=== PATIENT | female | born 1935 | race Caucasian/White ===

== ENCOUNTER 2016-10-17 14:55 | Observation (INO) ==
--- NOTE | 2016-10-17 15:41 | Emergency Department Note ---
Disposition Clinical Impression: Kidney stones Disposition: Admitted As Inpatient Condition: Good Referrals: Theodore,Tammy Dockery [employer] [Advanced Practice Nurse] - Time of Disposition: 17:50 Abdominal Pain HPI - General Chief Complaint: ED Abdominal Pain Stated Complaint: ABD pain Time Seen by Provider: 10/17/16 15:40 Source: patient, family - History of Present Illness HPI Narrative: 81-year-old female presents complaining of right lower quadrant abdominal pain began roughly at 10 AM today. She states she has not been feeling well the last 2 days, noting that her pants have become tighter and she has gone through stages where she becomes more sweaty & feverish, then chills. Her last BM was 2 days ago and was smaller than normal. She has been belching & gassy. She states that pain is a "hard pain" that is constant, right lower quadrant of the abdomen and wraps around to her back. It is associated with sweating, vomiting , dizziness. She states that the pain is worse with walking, sitting, laying on the right side. At 10 AM, when the pain began she took 2 laxatives, but has not had a bowel movement yet. She denies chest pain, shortness of breath, dysuria, hematemesis. She does state that she has a history of kidney stones and that this "feels worse." She also has a history of an open appendectomy in the 80s. Pain Scale: 9 - Related Data Home Medications Medication Instructions Recorded Confirmed No Known Home Drugs 10/17/16 10/17/16 Allergies Allergy/AdvReac Type Severity Reaction Status Date / Time No Known Allergies Allergy Verified 10/17/16 15:00 All systems ED: reviewed and negative except as stated. Abdominal Pain PMH - Past Medical History Medical history: Reports: glaucoma, kidney stones, other (basal cell carcinoma) Female Surgical History: Reports: appendectomy Psychiatric history: Reports: no psych history - Social History Smoking status: Never smoker Alcohol use: Reports: none Drug use: Reports: none Physical Exam - General Limitations: no limitations General appearance: alert, in distress - Head Head exam: atraumatic, normocephalic, normal inspection - Eye Eye exam: Present: normal appearance, PERRL, EOMI - ENT ENT exam: normal oropharynx, mucous membranes moist - Neck Neck exam: Present: normal inspection, full ROM, trachea midline. Absent: tenderness, lymphadenopathy, thyromegaly - Chest Chest inspection: Present: normal inspection, symmetric chest wall rise. Absent : tenderness - Respiratory Respiratory exam: Present: normal lung sounds bilaterally - Cardiovascular Cardiovascular exam: Present: regular rate, normal rhythm, normal heart sounds - Abdominal Exam Abdominal exam: Present: tenderness, distention, guarding, hyperactive bowel sounds, scar. Absent: rigidity, ascites, bruit, pulsatile mass Abdominal tenderness: Present: RLQ, suprapubic, diffuse - Extremities Exam Extremities exam: Present: normal inspection, full ROM, normal capillary refill. Absent: tenderness, pedal edema, calf tenderness - Neurological Exam Neurological exam: Present: alert, oriented X3. Absent: motor sensory deficit - Psychiatric Psychiatric exam: Present: normal affect, normal mood - Skin Skin exam: Present: warm, dry, intact, normal color. Absent: diaphoresis Course Course Narrative: 81-year-old female presents complaining of right lower quadrant abdominal pain began roughly at 10 AM today. She states she has not been feeling well the last 2 days, noting that her pants have become tighter and she has gone through stages where she becomes more sweaty & feverish, then chills. Her last BM was 2 days ago and was smaller than normal. She has been belching & gassy. She states that pain is a "hard pain" that is constant, right lower quadrant of the abdomen and wraps around to her back. It is associated with sweating, vomiting , dizziness. She states that the pain is worse with walking, sitting, laying on the right side. At 10 AM, when the pain began she took 2 laxatives, but has not had a bowel movement yet. She denies chest pain, shortness of breath, dysuria, hematemesis. She does state that she has a history of kidney stones and that this "feels worse." She also has a history of an open appendectomy in the 80s. On exam the patient appears in distress, holding her right lower quadrant of her abdomen. She is diffusely tender to palpation. Her abdomen is distended, but is not tympanic. She does have bowel sounds present in all 4 quadrants. Patient is not diaphoretic. Given her age, abdominal surgical history there is concern for possible AAA, SBO, ischemic bowel. We will obtain routine labs and a CAT scan of the abdomen\\pelvis. Patient will be given morphine for pain control and Zofran for nausea. CT reveals multiple kidney stones right kidney. The largest measures [address] Bosch will accept patient for admission. Patient still in pain and states that with her last kidney stone she tolerated Dilaudid. We will give her 1 mg and admit her to Dr. Bosch. - Reevaluation(s) Reevaluation #1: Patient has returned from CT. Patient continues to complain of pain after 2 mg of morphine. We will give second dose of 2 mg of morphine. Awaiting CT results. Time: 16:54 Reevaluation #2: CT results showed multiple stones in the right kidney. Dr. Bosch reviewed the CT and will see the patient as an inpatient. We have discussed this with the patient and her family who were agreeable to admission at this time. Patient is still experiencing pain and states that in the past she has tolerated dilaudid when she had kidney stones. 1 mg Dilaudid andphenergan ordered for sx control. Time: 17:30 - Consultations Consultation #1: Dr. Bosch has reviewed the CT results and will admit the patient. Time: 17:15 Vital Signs Temperature 97.3 F L 10/17/16 14:57 Pulse Rate 64 10/17/16 14:57 Respiratory Rate 18 10/17/16 14:57 Blood Pressure 183/75 10/17/16 14:57 O2 Sat by Pulse Oximetry 100 10/17/16 14:57 Temperature 95.9 F L 10/17/16 18:58 Pulse Rate 87 10/17/16 18:58 Respiratory Rate 14 10/17/16 18:58 Blood Pressure 173/103 10/17/16 18:58 O2 Sat by Pulse Oximetry 99 10/17/16 18:58 Oxygen Delivery Oxygen Delivery Nasal Cannula Abdominal Pain - Lab Data Lab results reviewed: Yes I reviewed the patient's lab results. Result diagrams: 10/17/16 16:10 10/17/16 16:10 Lab Results 10/17/16 10/17/16 10/17/16 Range/Units 15:50 16:10 16:10 WBC 12.8 H (4.3-11.1) K/mcL RBC 5.60 H (3.82-4.97) M/mcL Hgb 15.2 (11.5-15.4) g/dL Hct 45.4 H (35.3-44.9) % MCV 81.1 L (83.0-100.0) fL MCH 27.1 L (28.0-33.3) pg MCHC 33.5 (31.6-35.5) g/dL RDW 12.7 (11.5-14.5) % Plt Count 150 (140-400) K/mcL MPV 11.0 (9.4-12.4) fL Immature Gran % 0.9 (0-4) % Seg Neutrophils % 90.8 % Lymphocytes % 3.3 % Monocytes % 4.6 % Eosinophils % 0.1 % Basophils % 0.3 % Neutrophils # 11.6 H (1.6-8.9) K/mcL Lymphocytes # 0.4 L (0.6-4.6) K/mcL Monocytes # 0.6 (0.0-1.3) K/mcL Eosinophils # 0.0 (0.0-0.6) K/mcL Basophils # 0.0 (0.0-0.2) K/mcL PT 11.4 (9.4-12.1) Seconds INR 1.1 APTT 27.5 (26.0-36.0) Seconds Sodium (136-145) mEq/L Potassium (3.5-4.5) mEq/L Chloride (98-109) mEq/L Carbon Dioxide (19-29) mEq/L BUN (7-20) mg/dL Creatinine (0.57-1.11) mg/dL Est GFR ( Amer) (> 60) Est GFR (Non-Af Amer) (> 60) BUN/Creatinine Ratio (6-26) Glucose (70-99) mg/dL Calculated Osmolality (280-300) Lactic Acid (0.5-2.2) mmol/L Calcium (8.6-10.8) mg/dL Total Bilirubin (0.2-1.2) mg/dL AST (5-34) Units/L ALT (0-55) Units/L Alkaline Phosphatase (38-126) Units/L Serum Total Protein (6.0-8.3) g/dL Albumin (3.5-5.0) g/dL Globulin (2.4-3.5) g/dL Albumin/Globulin Ratio (1.1-2.2) Amylase (25-125) Units/L Lipase (8-78) Units/L Urine Color Yellow (Yellow) Urine Clarity Cloudy A (Clear) Urine pH 6.5 (5.0-8.0) pH Units Ur Specific [place] 1.021 (1.010-1.025) Urine Protein 30 H (Neg-Trace) mg/dL Urine Glucose (UA) Normal (Normal) mg/dL Urine Ketones 15 H (Negative) mg/dL Urine Blood Negative (Negative) Urine Nitrite Negative (Negative) Urine Bilirubin Negative (Negative) Urine Urobilinogen Normal (Normal) mg/dL Ur Leukocyte Esterase Moderate H (Negative) Urine Microscopic RBC 5-15 H (0-3) per hpf Urine Microscopic WBC 50-100 H (0-3) per hpf Ur Squamous Epith Cells Many H (None-Few) per lpf Urine Bacteria None Seen (None-Few) per hpf Hyaline Casts None Seen (None-Few) per lpf Ur Culture Indicated? YES A (NO) 10/17/16 10/17/16 Range/Units 16:10 16:10 WBC (4.3-11.1) K/mcL RBC (3.82-4.97) M/mcL Hgb (11.5-15.4) g/dL Hct (35.3-44.9) % MCV (83.0-100.0) fL MCH (28.0-33.3) pg MCHC (31.6-35.5) g/dL RDW (11.5-14.5) % Plt Count (140-400) K/mcL MPV (9.4-12.4) fL Immature Gran % (0-4) % Seg Neutrophils % % Lymphocytes % % Monocytes % % Eosinophils % % Basophils % % Neutrophils # (1.6-8.9) K/mcL Lymphocytes # (0.6-4.6) K/mcL Monocytes # (0.0-1.3) K/mcL Eosinophils # (0.0-0.6) K/mcL Basophils # (0.0-0.2) K/mcL PT (9.4-12.1) Seconds INR APTT (26.0-36.0) Seconds Sodium 139 (136-145) mEq/L Potassium 4.4 (3.5-4.5) mEq/L Chloride 103 (98-109) mEq/L Carbon Dioxide 22 (19-29) mEq/L BUN 19 (7-20) mg/dL Creatinine 0.77 (0.57-1.11) mg/dL Est GFR ( Amer) > 60 (> 60) Est GFR (Non-Af Amer) > 60 (> 60) BUN/Creatinine Ratio 25 (6-26) Glucose 147 H (70-99) mg/dL Calculated Osmolality 293 (280-300) Lactic Acid 2.0 (0.5-2.2) mmol/L Calcium 9.5 (8.6-10.8) mg/dL Total Bilirubin 0.5 (0.2-1.2) mg/dL AST 24 (5-34) Units/L ALT 13 (0-55) Units/L Alkaline Phosphatase 78 (38-126) Units/L Serum Total Protein 7.2 (6.0-8.3) g/dL Albumin 3.8 (3.5-5.0) g/dL Globulin 3.4 (2.4-3.5) g/dL Albumin/Globulin Ratio 1.1 (1.1-2.2) Amylase 48 (25-125) Units/L Lipase 47 (8-78) Units/L Urine Color (Yellow) Urine Clarity (Clear) Urine pH (5.0-8.0) pH Units Ur Specific [place] (1.010-1.025) Urine Protein (Neg-Trace) mg/dL Urine Glucose (UA) (Normal) mg/dL Urine Ketones (Negative) mg/dL Urine Blood (Negative) Urine Nitrite (Negative) Urine Bilirubin (Negative) Urine Urobilinogen (Normal) mg/dL Ur Leukocyte Esterase (Negative) Urine Microscopic RBC (0-3) per hpf Urine Microscopic WBC (0-3) per hpf Ur Squamous Epith Cells (None-Few) per lpf Urine Bacteria (None-Few) per hpf Hyaline Casts (None-Few) per lpf Ur Culture Indicated? (NO) - Radiology Data Radiology results reviewed: Yes I reviewed the patient's radiology results. Abdomen/Pelvis CT 10/17/16 16:01 IMPRESSION: 1. CT evidence of right obstructive uropathy. There are a few right distal ureteral calculi resulting in moderate right hydroureteronephrosis and severe right perinephric stranding. The largest calculus measures 7 x 7 mm. 2. Additional bilateral renal calculi. 3. Moderate size hiatal hernia. 4. Diverticulosis. 5. Moderate atherosclerosis. 6. Grade 1 anterolisthesis of L3 and L4, L4-5 and L5-S1. Moderate levoscoliosis and advanced multilevel degenerative disc disease. 7. Additional stable incidental findings in the chest and abdomen as detailed. D/ / Gayle Lui MD / Gayle Lui MD Interpreting Provider: Gayle Lui MD - EKG Data EKG attestation: Yes I reviewed and interpreted this EKG. EKG shows normal: sinus rhythm Rate: normal Rhythm: NSR [place]/QRS: normal When compared to previous EKG there are: previous EKG unavailable Interpretation: normal EKG
[2016-10-17] MEDS ORDERED: Ondansetron 4 MG/2 ML VIAL IVP ONE (16:00)
[2016-10-17] MEDS ORDERED: *HR* Morphine 2 MG/ML SYRINGE IVP ONE ×2 (16:00→17:00)
[2016-10-17 16:04] LABS: Bilirubin,Urine Negative (Negative); Blood,Urine Negative (Negative); Clarity,Urine Cloudy (Clear); Color,Urine Yellow (Yellow); Glucose,Urine (UA) Normal (Normal); Ketones,Urine 15 mg/dL (Negative); Leukocyte Esterase,Urine Moderate (Negative); Nitrite,Urine Negative (Negative); PH,Urine 6.5 pH Units (5.0-8.0); Protein,Urine 30 mg/dL (Neg-Trace); Specific Gravity,Urine 1.021 (1.010-1.025); Urobilinogen,Urine Normal (Normal)
[2016-10-17 16:11] LABS: Bacteria,Urine None Seen per hpf (None-Few); Hyaline Casts,Urine None Seen per lpf (None-Few); Squamous Epithelial Cell,Urine Many per lpf (None-Few); WBC,Urine 50-100 per hpf (0-3)
[2016-10-17 16:21] LABS: Basophils % 0.3 %; Eosinophils % 0.1 %; Hematocrit 45.4 % (35.3-44.9); Hemoglobin 15.2 g/dL (11.5-15.4); Immature Granulocytes % 0.9 % (0-4); Lymphocytes # 0.4 K/mcL (0.6-4.6); Lymphocytes % 3.3 %; Mean Corpuscular HGB Conc 33.5 g/dL (31.6-35.5); Mean Corpuscular Hemoglobin 27.1 pg (28.0-33.3); Mean Corpuscular Volume 81.1 fL (83.0-100.0); Monocytes # 0.6 K/mcL (0.0-1.3); Monocytes % 4.6 %; Neutrophils # 11.6 K/mcL (1.6-8.9); Platelet Count 150 K/mcL (140-400); Red Cell Distribution Width 12.7 % (11.5-14.5); Segmented Neutrophils % 90.8 %
[2016-10-17 16:27] LABS: INR 1.1; Prothrombin Time 11.4 Seconds (9.4-12.1)
[2016-10-17 16:30] LABS: Activated Partial Thrombo Time 27.5 Seconds (26.0-36.0)
[2016-10-17 16:36] LABS: Alanine Aminotransferase 13 Units/L (0-55); Albumin 3.8 g/dL (3.5-5.0); Albumin/Globulin Ratio 1.1 (1.1-2.2); Alkaline Phosphatase 78 Units/L (38-126); Amylase 48 Units/L (25-125); Aspartate Amino Transferase 24 Units/L (5-34); BUN/Creatinine Ratio 25 (6-26); Bilirubin,Total 0.5 mg/dL (0.2-1.2); Blood Urea Nitrogen 19 mg/dL (7-20); Calcium 9.5 mg/dL (8.6-10.8); Carbon Dioxide 22 mEq/L (19-29); Chloride 103 mEq/L (98-109); Globulin 3.4 g/dL (2.4-3.5); Glucose 147 mg/dL (70-99); Lipase 47 Units/L (8-78); Osmolality,Calculated 293 (280-300); Potassium 4.4 mEq/L (3.5-4.5); Sodium 139 mEq/L (136-145); Total Protein 7.2 g/dL (6.0-8.3); eGFR For African Americans > 60 (> 60); eGFR For Non-African Americans > 60 (> 60)
[2016-10-17] MEDS ORDERED: *HR* Morphine 2 MG/ML SYRINGE IVP PRN ×2 (16:53→19:31)
[2016-10-17] MEDS ORDERED: *HR* HYDROmorphone (PF) 1 MG/ML SYRINGE IVP ONE (17:48)
[2016-10-17] MEDS ORDERED: *HR* Promethazine 25 MG/ML VIAL IVP ONE (17:59)
--- NOTE | 2016-10-17 18:04 | Emergency Department Note ---
Disposition Clinical Impression: Kidney stones Disposition: Admitted As Inpatient Condition: Good Forms: ED Satisfaction Letter, Work/School Release General Adult HPI - General Chief complaint: ED Abdominal Pain Stated complaint: ABD pain Time Seen by Provider: 10/17/16 15:40 Source: patient, family Limitations: no limitations - History of Present Illness Pain Scale: 9 - Related Data Allergies Allergy/AdvReac Type Severity Reaction Status Date / Time No Known Allergies Allergy Verified 10/17/16 15:00 Past Medical History - Past Medical History Medical history: Reports: glaucoma, kidney stones, other (basal cell carcinoma) Psychiatric history: Reports: no psych history - Social History Smoking Status: Never smoker Smokeless Tobacco Status: No Alcohol use: Reports: none Drug use: Reports: none Physical Exam - General Limitations: no limitations General appearance: alert, in distress Course - Reevaluation(s) Reevaluation #1: Saw the patient with the resident, Dr. Rojo. Patient presented with right- sided abdominal pain and flank pain. On exam she was put uncomfortable and she is already received some pain medications. CAT scan shows a very large right ureteral stone which certainly explains her symptoms. No other acute pathology was identified on the CT or in the laboratory workup. I had discussed the case with Dr. Bosch, the urologist, who recommended the patient be admitted to his service for management. Admission is been arranged. We will work to further control the patient's pain prior to transport to the floor. Time: 18:03 Vital Signs Temperature 97.3 F L 10/17/16 14:57 Pulse Rate 64 10/17/16 14:57 Respiratory Rate 18 10/17/16 14:57 Blood Pressure 183/75 10/17/16 14:57 O2 Sat by Pulse Oximetry 100 10/17/16 14:57 Temperature 97.3 F L 10/17/16 14:57 Pulse Rate 67 10/17/16 17:30 Respiratory Rate 16 10/17/16 17:30 Blood Pressure 166/85 10/17/16 17:30 O2 Sat by Pulse Oximetry 96 10/17/16 17:30 Oxygen Delivery Oxygen Delivery Room Air Medical Decision Making - Lab Data Result diagrams: 10/17/16 16:10 10/17/16 16:10 Lab Results 10/17/16 10/17/16 10/17/16 Range/Units 15:50 16:10 16:10 WBC 12.8 H (4.3-11.1) K/mcL RBC 5.60 H (3.82-4.97) M/mcL Hgb 15.2 (11.5-15.4) g/dL Hct 45.4 H (35.3-44.9) % MCV 81.1 L (83.0-100.0) fL MCH 27.1 L (28.0-33.3) pg MCHC 33.5 (31.6-35.5) g/dL RDW 12.7 (11.5-14.5) % Plt Count 150 (140-400) K/mcL MPV 11.0 (9.4-12.4) fL Immature Gran % 0.9 (0-4) % Seg Neutrophils % 90.8 % Lymphocytes % 3.3 % Monocytes % 4.6 % Eosinophils % 0.1 % Basophils % 0.3 % Neutrophils # 11.6 H (1.6-8.9) K/mcL Lymphocytes # 0.4 L (0.6-4.6) K/mcL Monocytes # 0.6 (0.0-1.3) K/mcL Eosinophils # 0.0 (0.0-0.6) K/mcL Basophils # 0.0 (0.0-0.2) K/mcL PT 11.4 (9.4-12.1) Seconds INR 1.1 APTT 27.5 (26.0-36.0) Seconds Sodium (136-145) mEq/L Potassium (3.5-4.5) mEq/L Chloride (98-109) mEq/L Carbon Dioxide (19-29) mEq/L BUN (7-20) mg/dL Creatinine (0.57-1.11) mg/dL Est GFR ( Amer) (> 60) Est GFR (Non-Af Amer) (> 60) BUN/Creatinine Ratio (6-26) Glucose (70-99) mg/dL Calculated Osmolality (280-300) Lactic Acid (0.5-2.2) mmol/L Calcium (8.6-10.8) mg/dL Total Bilirubin (0.2-1.2) mg/dL AST (5-34) Units/L ALT (0-55) Units/L Alkaline Phosphatase (38-126) Units/L Serum Total Protein (6.0-8.3) g/dL Albumin (3.5-5.0) g/dL Globulin (2.4-3.5) g/dL Albumin/Globulin Ratio (1.1-2.2) Amylase (25-125) Units/L Lipase (8-78) Units/L Urine Color Yellow (Yellow) Urine Clarity Cloudy A (Clear) Urine pH 6.5 (5.0-8.0) pH Units Ur Specific [place] 1.021 (1.010-1.025) Urine Protein 30 H (Neg-Trace) mg/dL Urine Glucose (UA) Normal (Normal) mg/dL Urine Ketones 15 H (Negative) mg/dL Urine Blood Negative (Negative) Urine Nitrite Negative (Negative) Urine Bilirubin Negative (Negative) Urine Urobilinogen Normal (Normal) mg/dL Ur Leukocyte Esterase Moderate H (Negative) Urine Microscopic RBC 5-15 H (0-3) per hpf Urine Microscopic WBC 50-100 H (0-3) per hpf Ur Squamous Epith Cells Many H (None-Few) per lpf Urine Bacteria None Seen (None-Few) per hpf Hyaline Casts None Seen (None-Few) per lpf Ur Culture Indicated? YES A (NO) 10/17/16 10/17/16 Range/Units 16:10 16:10 WBC (4.3-11.1) K/mcL RBC (3.82-4.97) M/mcL Hgb (11.5-15.4) g/dL Hct (35.3-44.9) % MCV (83.0-100.0) fL MCH (28.0-33.3) pg MCHC (31.6-35.5) g/dL RDW (11.5-14.5) % Plt Count (140-400) K/mcL MPV (9.4-12.4) fL Immature Gran % (0-4) % Seg Neutrophils % % Lymphocytes % % Monocytes % % Eosinophils % % Basophils % % Neutrophils # (1.6-8.9) K/mcL Lymphocytes # (0.6-4.6) K/mcL Monocytes # (0.0-1.3) K/mcL Eosinophils # (0.0-0.6) K/mcL Basophils # (0.0-0.2) K/mcL PT (9.4-12.1) Seconds INR APTT (26.0-36.0) Seconds Sodium 139 (136-145) mEq/L Potassium 4.4 (3.5-4.5) mEq/L Chloride 103 (98-109) mEq/L Carbon Dioxide 22 (19-29) mEq/L BUN 19 (7-20) mg/dL Creatinine 0.77 (0.57-1.11) mg/dL Est GFR ( Amer) > 60 (> 60) Est GFR (Non-Af Amer) > 60 (> 60) BUN/Creatinine Ratio 25 (6-26) Glucose 147 H (70-99) mg/dL Calculated Osmolality 293 (280-300) Lactic Acid 2.0 (0.5-2.2) mmol/L Calcium 9.5 (8.6-10.8) mg/dL Total Bilirubin 0.5 (0.2-1.2) mg/dL AST 24 (5-34) Units/L ALT 13 (0-55) Units/L Alkaline Phosphatase 78 (38-126) Units/L Serum Total Protein 7.2 (6.0-8.3) g/dL Albumin 3.8 (3.5-5.0) g/dL Globulin 3.4 (2.4-3.5) g/dL Albumin/Globulin Ratio 1.1 (1.1-2.2) Amylase 48 (25-125) Units/L Lipase 47 (8-78) Units/L Urine Color (Yellow) Urine Clarity (Clear) Urine pH (5.0-8.0) pH Units Ur Specific [place] (1.010-1.025) Urine Protein (Neg-Trace) mg/dL Urine Glucose (UA) (Normal) mg/dL Urine Ketones (Negative) mg/dL Urine Blood (Negative) Urine Nitrite (Negative) Urine Bilirubin (Negative) Urine Urobilinogen (Normal) mg/dL Ur Leukocyte Esterase (Negative) Urine Microscopic RBC (0-3) per hpf Urine Microscopic WBC (0-3) per hpf Ur Squamous Epith Cells (None-Few) per lpf Urine Bacteria (None-Few) per hpf Hyaline Casts (None-Few) per lpf Ur Culture Indicated? (NO) Attestation Statement - Attestation Attestation: I, Dr. Hanna, examined this patient [id number] and my medical decision- making was reviewed with Dr. Rojo, Resident Physician. I agree with the documented findings, disposition and treatment plan as described except to the extent set forth below. Please see my progress notes for details.
[2016-10-17] MEDS ORDERED: *HR* Promethazine 25 MG/ML VIAL IVP PRN (19:31)
[2016-10-17] MEDS ORDERED: *HR* HYDROcodone/Acet 5/325 mg TABLET PO PRN (19:31)
[2016-10-17] MEDS ORDERED: Naloxone 0.4 MG/ML INJ IVP PRN (19:31)
--- NOTE | 2016-10-17 19:50 | Urology History & Physical ---
Date of Encounter: 10/17/16 Time of Encounter: 19:47 Assessment and Plan (1) Right ureteral stone Current Visit: Yes Status: Acute observation for iv fluids and iv pain control. if patient fails to pass stone will perform right ureteroscopic stone extraction History of Present Illness Chief complaint: right flank pain HPI: Ms. Enriquez is a 81 year old female with a history of kidney stones. The patient came to the ED earlier today with severe 10/10 right flank pain. found to have 2 distal right ureteral stones. pain controlled only with iv pain meds. patient currently sleeping secondary to large dose of narcotics. Past Med Surg Social Fam HX - Past Medical History Medical history: glaucoma, kidney stones, other (basal cell carcinoma) Psychiatric history: no psych history - Past Surgical History Surgical History: appendectomy - Social History Smoking Status: Never smoker Smokeless Tobacco Status: No Alcohol use: none Drug use: none Medications and Allergies No Known Home Drugs 10/17/16 [History] Allergies No Known Allergies Allergy (Verified 10/17/16 15:00) Review of Systems ROS unobtainable: due to mental status Exam Initial Vital Signs Temp Pulse Resp BP Pulse Ox 97.3 F L 64 18 183/75 100 10/17/16 14:57 10/17/16 14:57 10/17/16 14:57 10/17/16 14:57 10/17/16 14:57 - General physical appearance Present: well developed - ENT Present: normal nares - Neck Present: no masses - Respiratory Present: normal respiratory effort - Cardiovascular Cardiovascular exam IM: RRR - Abdomen Abdomen: Present: soft - Integumentary Present: no rash - Neurologic Present: other (sleepy) Urology Results - Labs 10/17/16 16:10 10/17/16 16:10 Abnormal lab results WBC 12.8 K/mcL (4.3-11.1) H 10/17/16 16:10 RBC 5.60 M/mcL (3.82-4.97) H 10/17/16 16:10 Hct 45.4 % (35.3-44.9) H 10/17/16 16:10 MCV 81.1 fL (83.0-100.0) L 10/17/16 16:10 MCH 27.1 pg (28.0-33.3) L 10/17/16 16:10 Neutrophils # 11.6 K/mcL (1.6-8.9) H 10/17/16 16:10 Lymphocytes # 0.4 K/mcL (0.6-4.6) L 10/17/16 16:10 Glucose 147 mg/dL (70-99) H 10/17/16 16:10 Urine Clarity Cloudy (Clear) A 10/17/16 15:50 Urine Protein 30 mg/dL (Neg-Trace) H 10/17/16 15:50 Urine Ketones 15 mg/dL (Negative) H 10/17/16 15:50 Ur Leukocyte Esterase Moderate (Negative) H 10/17/16 15:50 Urine Microscopic RBC 5-15 per hpf (0-3) H 10/17/16 15:50 Urine Microscopic WBC 50-100 per hpf (0-3) H 10/17/16 15:50 Ur Squamous Epith Cells Many per lpf (None-Few) H 10/17/16 15:50 Ur Culture Indicated? YES (NO) A 10/17/16 15:50 All other labs normal. - Imaging CT scan - abdomen: image reviewed CT scan - pelvis: image reviewed
[2016-10-17] MEDS: 0.9 % Sodium Chloride 1,000 ML IVC SCH (20:57)
[2016-10-18] MEDS: 0.9 % Sodium Chloride 1,000 ML IVC SCH (04:25)
[2016-10-18 05:55] LABS: Basophils % 0.3 %; Eosinophils # 0.1 K/mcL (0.0-0.6); Eosinophils % 0.5 %; Hematocrit 40.2 % (35.3-44.9); Immature Granulocytes % 0.5 % (0-4); Lymphocytes # 0.8 K/mcL (0.6-4.6); Lymphocytes % 7.7 %; Mean Corpuscular HGB Conc 33.3 g/dL (31.6-35.5); Mean Corpuscular Hemoglobin 27.3 pg (28.0-33.3); Mean Corpuscular Volume 81.9 fL (83.0-100.0); Mean Platelet Volume 11.2 fL (9.4-12.4); Monocytes # 1.1 K/mcL (0.0-1.3); Monocytes % 10.9 %; Neutrophils # 8.2 K/mcL (1.6-8.9); Platelet Count 143 K/mcL (140-400); Red Blood Count 4.91 M/mcL (3.82-4.97); Red Cell Distribution Width 12.9 % (11.5-14.5); Segmented Neutrophils % 80.1 %
[2016-10-18 05:56] LABS: Hemoglobin 13.4 g/dL (11.5-15.4)
[2016-10-18 06:20] LABS: BUN/Creatinine Ratio 27 (6-26); Blood Urea Nitrogen 20 mg/dL (7-20); Calcium 8.7 mg/dL (8.6-10.8); Carbon Dioxide 24 mEq/L (19-29); Chloride 107 mEq/L (98-109); Glucose 90 mg/dL (70-99); Osmolality,Calculated 290 (280-300); Sodium 139 mEq/L (136-145); eGFR For African Americans > 60 (> 60); eGFR For Non-African Americans > 60 (> 60)
[2016-10-18] MEDS ORDERED: *HR* Propofol 200 MG/20 ML VIAL IVP ONE (07:21)
[2016-10-18] MEDS ORDERED: *HR* FentaNYL (PF) 100 MCG/2 ML VIAL ONE (07:21)
[2016-10-18] MEDS ORDERED: *HR* Succinylcholine 200 MG/10 ML VIAL IVP ONE (07:22)
[2016-10-18] MEDS ORDERED: Lidocaine -MPF 2% 2 ML VIAL ONE ×2 (07:22→07:45)
--- NOTE | 2016-10-18 07:23 | Urology Progress Note ---
Date of Encounter: 10/18/16 Time of Encounter: 07:20 - Assessment and Plan (1) Right ureteral stone Current Visit: Yes Status: Acute Assessment and plan: failed to pass stones. to or today for stone extraction. Progress Note Narrative: hd 2 from right flank pain for distal ureteral stones. pain well control. Objective Initial Vital Signs Temp Pulse Resp BP Pulse Ox 97.3 F L 64 18 183/75 100 10/17/16 14:57 10/17/16 14:57 10/17/16 14:57 10/17/16 14:57 10/17/16 14:57 - General physical appearance Present: well developed - Abdomen Present: soft - Labs 10/18/16 05:23 10/18/16 05:23 Diabetes panel 10/18/16 Range/Units 05:23 Sodium 139 (136-145) mEq/L Potassium 4.0 (3.5-4.5) mEq/L Chloride 107 (98-109) mEq/L Carbon Dioxide 24 (19-29) mEq/L BUN 20 (7-20) mg/dL Creatinine 0.73 (0.57-1.11) mg/dL Glucose 90 (70-99) mg/dL Calcium 8.7 (8.6-10.8) mg/dL Calcium panel 10/18/16 Range/Units 05:23 Calcium 8.7 (8.6-10.8) mg/dL Pituitary panel 10/18/16 Range/Units 05:23 Sodium 139 (136-145) mEq/L Potassium 4.0 (3.5-4.5) mEq/L Chloride 107 (98-109) mEq/L Carbon Dioxide 24 (19-29) mEq/L BUN 20 (7-20) mg/dL Creatinine 0.73 (0.57-1.11) mg/dL Glucose 90 (70-99) mg/dL Calcium 8.7 (8.6-10.8) mg/dL Adrenal panel 10/18/16 Range/Units 05:23 Sodium 139 (136-145) mEq/L Potassium 4.0 (3.5-4.5) mEq/L Chloride 107 (98-109) mEq/L Carbon Dioxide 24 (19-29) mEq/L BUN 20 (7-20) mg/dL Creatinine 0.73 (0.57-1.11) mg/dL Glucose 90 (70-99) mg/dL Calcium 8.7 (8.6-10.8) mg/dL Consult Discharge Plan - Plan Referrals: Tammy Jaimes CNP [Advanced Practice Nurse] -
[2016-10-18] MEDS ORDERED: Lidocaine -MPF 4% 5 ML AMPUL ONE (07:26)
[2016-10-18] MEDS ORDERED: *HR* Phenylephrine 10 MG/ML VIAL ONE (07:28)
--- NOTE | 2016-10-18 07:35 | Anesthesia Evaluation PreOp ---
Date of Encounter: 10/18/16 Time of Encounter: 07:30 - Past History Planned Operation: r ureteral stone c laser Cardiac History: Denies any Significant Hx Pulmonary History: Denies Any Significant HX [employer] History: Other (glaucoma) Other Medical History: Renal (stones) Anesthesia History: No Prior Anesthetic Complications, Past Anesthesia (appy) Alcohol Use: none Drug use: none Medications and Allergies No Known Home Drugs 10/17/16 [History] Allergies No Known Allergies Allergy (Verified 10/17/16 15:00) - Meds/Allergy Pre-op Review Medications Reviewed: Yes Allergies Reviewed: Yes Beta Blockers on Current Med List: No Anesthesia Results - Labs 10/18/16 05:23 10/18/16 05:23 - Imaging EKG: report reviewed (sr) Anesthesia Exam Vital Signs/O2 Sat/Glucose, Most Current Temp Pulse Resp BP Pulse Ox 10/18/16 07:03 98.5 F 86 16 131/71 94 L 10/18/16 03:37 98.4 F 81 14 109/75 97 Height: 1.55 Weight: 68 NPO (# of Hours): >8 - HEENT Pupil (Motor): Pupils equal, EOMI Mallampati: III Teeth: Edentulous Oral Opening: Greater than 3 - [employer] LOC: Oriented [employer] Motor: Normal RUE, Normal LUE, Normal RLE, Normal LLE, Normal Face [employer] Sensory: Normal: RUE, LUE, RLE, LLE, Face - Cardiac Rhythm: Regular Murmur: None - Pulmonary Breath Sounds: bilateral Clear Respiratory Effort: Symmetrical Anesthesia Assess/Plan ASA Score: 3 Modified [place]ipe Scale for Level of Consciousness: Cooperative, oriented, and tranquil Anesthetic Plan: General Monitoring Plan: Standard Monitors Recovery Plan: PACU
[2016-10-18] MEDS ORDERED: Ondansetron 4 MG/2 ML VIAL ONE ×2 (08:06→09:37)
[2016-10-18] MEDS ORDERED: Dexamethasone 4 MG/ML VIAL ONE (08:06)
[2016-10-18] MEDS ORDERED: *HR* Morphine 2 MG/ML SYRINGE IVP PRN ×2 (08:20→09:32)
--- NOTE | 2016-10-18 08:29 | Operative Note ---
Date of procedure: 10/18/16 Pre-op diagnosis: right distal ureteral stone Post-op diagnosis: same Procedure: Right ureteroscopic laser lithotripsy of stone, right ureteroscopic basket retrieval of stone fragment, right 4.8 x 26 m ureteral stent placement Anesthesia: DEA Surgeon: Ganesh Bosch Specimen: Right ureteral stone Condition: stable Disposition: PACU Procedure in Detail: The patient was prepped and draped in normal sterile fashion after being placed in lithotomy position. I then placed the semirigid ureteroscope into the right ureter. The stone was located in the very distal right ureter. Once I encountered the stone, I used the holmium laser to fragment the stone into multiple small pieces. I then used a Nitinol tipless basket to remove all stone fragments from the patient's ureter. Once this was done, the ureter was surveyed with no further stones seen. I then back fed a 4.8x 26cm ureteral stent into place, with good curl seen in the kidney and in the bladder. This was placed using fluoroscopic guidance. A string was left for easy removal. The procedure was ended.
--- NOTE | 2016-10-18 08:31 | Discharge Summary ---
Date of Encounter: 10/18/16 Time of Encounter: 08:29 - Discharge Diagnosis (1) Right ureteral stone Priority: Primary Status: Acute - Discharge Medications Prescriptions: HYDROcodone/Acet 5/325 mg [[place] 5-325 mg] 2 tab PO Q6HR PRN #15 tablet PRN Reason: Moderate Pain Oxybutynin [Ditropan] 5 mg PO TID PRN #30 tablet PRN Reason: bladder spasms Home Medications: HYDROcodone/Acet 5/325 mg [[place] 5-325 mg] 2 tab PO Q6HR PRN #15 tablet [Rx] Oxybutynin [Ditropan] 5 mg PO TID PRN #30 tablet 10/18/16 [Rx] Allergies/Adverse Reactions: Allergies No Known Allergies Allergy (Verified 10/17/16 15:00) Procedures and tests throughout hospitalization: Right ureteroscopic stone extraction and stent placement on 10/18/2016 Labs on day of discharge: Labs from last 24 hours 10/18/16 10/18/16 10/18/16 06:05 05:23 05:23 WBC 10.2 RBC 4.91 Hgb 13.4 D Hct 40.2 MCV 81.9 L MCH 27.3 L MCHC 33.3 RDW 12.9 Plt Count 143 MPV 11.2 Immature Gran % 0.5 Seg Neutrophils % 80.1 Lymphocytes % 7.7 Monocytes % 10.9 Eosinophils % 0.5 Basophils % 0.3 Neutrophils # 8.2 Lymphocytes # 0.8 Monocytes # 1.1 Eosinophils # 0.1 Basophils # 0.0 Sodium 139 Potassium 4.0 Chloride 107 Carbon Dioxide 24 BUN 20 Creatinine 0.73 Est GFR ( Amer) > 60 Est GFR (Non-Af Amer) > 60 BUN/Creatinine Ratio 27 H Glucose 90 POC Glucose 83 Calculated Osmolality 290 Calcium 8.7 Date of admission: 10/17/16 18:10 Primary care physician: PCP NO Discharging clinician: Ganesh Bosch - Patient Status Disposition: Home, Self-Care Condition: Good Overall status at discharge: patient is progressing back to baseline - Discharge Instructions Follow Up With: Tammy Jaimes CNP [Advanced Practice Nurse] - Ganesh Bosch MD [Partnered Physician] - (2-3 weeks ) Additional Instructions: [id number] (Rev. 06/13) Page 1 of 2 POST-OPERATIVE HOME GOING INSTRUCTIONS: URETEROSCOPY/STENT/CYSTOSCOPY [facility] [address] [facility] [address] [place] [address] [address] Etienne Jose Your post-operative appointment has been scheduled for 1. When you leave Same Day Surgery you may be given: Prescriptions - Please finish all antibiotics. follow- up visit if instructed by your physician. 2. You should drink 6-8 glasses of water per day, as long as you are not on fluid restrictions by another physician. 3. It is very common to have blood and small clots in you urine following surgery. You may also experience urinary tract discomfort, irritation of the bladder and urethra (frequency, urgency, and pain/burning with urination), and occasional inability to control your urine. No sexual intercourse until evaluated by your physician 4. If you have a stent, you can expect pain: In your bladder radiating up to your kidney when, and after, you urinate When lifting something heavy When you turn or bend If you have a stent, you can expect frequency, urgency, and burning with urination and intermittent pink/red colored urine. You can work with a stent in place, but if you do a lot of heavy lifting or moving around you will see more blood in your urine. This is OKAY- just drink more fluids. If a string is taped to your abdomen, penis or thigh, it is connected to your stent. DO NOT pull on, or cut, your stent string, unless otherwise instructed by your physician. 5. Okay for patient to remove stent in 2-3 days. - Diet and Activity Activity: increase activity as tolerated Diet: advance to your usual diet - Hospital Course Hospital course: Ms. Enriquez is a 81 year old female who was brought into the hospital on October 17 2016 for right-sided flank pain and right distal ureteral stones. Patient failed to pass her stones and thus was taken to the operating room on 2016. Her stones were removed and stent placed. Patient was then transferred back to floor where she recovered well and was discharged home. Time spent discussing smoking cessation with patient: 3 to 10 minutes - Time Spent with Patient Total time spent providing and/or coordinating discharge services: Less than 30 minutes Exam Initial Vital Signs Temp Pulse Resp BP Pulse Ox 97.3 F L 64 18 183/75 100 10/17/16 14:57 10/17/16 14:57 10/17/16 14:57 10/17/16 14:57 10/17/16 14:57 - General physical appearance Present: well developed - Respiratory Present: normal respiratory effort
--- NOTE | 2016-10-18 09:10 | Anesthesia Evaluation Post Op ---
Date of Encounter: 10/18/16 Time of Encounter: 09:09 - Vital Signs Vital Signs: Vital Signs/O2 Sat, Most Current Temp Pulse Resp BP Pulse Ox 98.4 F 62 16 139/68 99 10/18/16 09:02 10/18/16 09:02 10/18/16 09:02 10/18/16 09:02 10/18/16 09:02 - Lungs Lungs: Clear Ascult./Percussion - Airway Airway: Non-obstructed - Cardiovascular Regular Rate - Mental Status Mental Status: Alert & Oriented, Answers Appropriately - Pain Pain Scale: 0 - Nausea Vomiting Nausea Vomiting: Not Present - Hydration Hydration: Ice chips - Discharge PostOp Status: Transfer Patient to floor
[2016-10-18] MEDS ORDERED: *HR* Promethazine 25 MG/ML VIAL IVP PRN (09:32)
[2016-10-18] MEDS ORDERED: 0.9 % Sodium Chloride 1,000 ML IVC SCH (09:32)
[2016-10-18] MEDS ORDERED: *HR* HYDROcodone/Acet 5/325 mg TABLET PO PRN (09:32)
[2016-10-18] MEDS ORDERED: Naloxone 0.4 MG/ML INJ IVP PRN (09:32)
[2016-10-18 12:40] VITALS: BP 149/79
== END 2016-10-18 12:34 | disposition home or self-care (01) ==
LOC: 3ANU 14:55 → EMEROO 14:55 → 3ANU 18:35
PROVIDERS: ADMIT Urology; ATTEND Urology

== ENCOUNTER 2016-11-05 10:03 | Inpatient (IN) ==
--- NOTE | 2016-11-05 10:56 | Emergency Department Note ---
Disposition Clinical Impression: TIA (transient ischemic attack) Qualifiers: Transient cerebral ischemia type: unspecified Qualified Code(s): G45.9 - Transient cerebral ischemic attack, unspecified Disposition: Admitted As Inpatient Condition: Good Time of Disposition: 11:08 Neuro HPI - General Chief Complaint: ED Neuro Symptoms/Deficit Stated Complaint: Possible TIA Time Seen by Provider: 11/05/16 10:10 Source: patient Mode of arrival: wheelchair Limitations: no limitations Nursing Notes Reviewed: Yes Vital Signs Reviewed: Yes - History of Present Illness HPI Narrative: Ms. Enriqeuz is an 81 year old female with history of kidney stones, galucoma, and basal cell carcinoma who presents with family members to the ED with reported shakiness, disorientation, and confusion that occurred at about 0200am this morning shortly after the patient woke up to make some coffee. Patient reports that she was very shaky and unstable on her feet, reported seeing well, but was not comprehending questions that were asked by family or fully being aware of her environment. Als reports some mild shortness of breath. Daughter reports the episode lasted about 1 hour before the shakiness and confusion/ disorientation resolved. Daughter also reports the patient was complaining of some buzzing and fuzziness of the left side of her head. Family reports no drooping or slurring of speech. Reports patient has baseline unsteadiness in gait, but was worse during episode due to the shaking. The patient reports that she had a small headache when waking up from a nap prior to arrival to ED and reports she had no trouble understanding questions or being aware of where she was. Patient took 4 ibuprofen and 2 regular aspirin around the event time. Patient denies fever, chills, sweats, changes in vision or hearing, chest pain , abdominal pain, changes in bowels or bladder, weakness, or loss of sensation. - Related Data Home Medications: Home Medications Medication Instructions Recorded Confirmed No Known Home Drugs 11/05/16 11/05/16 Allergies/Adverse Reactions: Allergies Allergy/AdvReac Type Severity Reaction Status Date / Time No Known Allergies Allergy Verified 10/17/16 15:00 Constitutional: Reports: as per HPI. Denies: fever, chills, weakness Eyes: Reports: as per HPI. Denies: vision change ENT ED: Reports: as per HPI Cardiovascular: Reports: as per HPI. Denies: chest pain, palpitations Respiratory: Reports: as per HPI. Denies: dyspnea Gastrointestinal: Reports: as per HPI. Denies: abdominal pain, vomiting, diarrhea, constipation Genitourinary: Reports: as per HPI. Denies: dysuria Musculoskeletal: Reports: as per HPI. Denies: back pain, neck pain Integumentary: Reports: as per HPI. Denies: rash Neurological: Reports: as per HPI, headache, confusion. Denies: weakness, numbness Hematological/Lymphatic: Reports: as per HPI. Denies: easy bleeding, easy bruising Allergic/Immunologic: Reports: as per HPI Past Medical History - Past Medical History Medical history: Reports: glaucoma, kidney stones, other Surgical history: Reports: appendectomy Psychiatric history: Reports: no psych history - Social History Smoking Status: Never smoker Smokeless Tobacco Status: No Alcohol use: Reports: none Drug use: Reports: none Physical Exam - General Limitations: no limitations General appearance: alert, in no apparent distress - Head Head exam: atraumatic, normocephalic, normal inspection - Eye Eye exam: Present: normal appearance, PERRL, EOMI - ENT ENT exam: normal exam, normal oropharynx - Neck Neck exam: Present: normal inspection, full ROM, trachea midline - Chest Chest inspection: Present: normal inspection, symmetric chest wall rise - Respiratory Respiratory exam: Present: normal lung sounds bilaterally - Cardiovascular Cardiovascular exam: Present: regular rate, normal rhythm, normal heart sounds - Abdominal Exam Abdominal exam: Present: soft, Non-Tender, normal bowel sounds - Extremities Exam Extremities exam: Present: normal inspection, full ROM, normal capillary refill. Absent: tenderness, pedal edema - Neurological Exam Neurological exam: Present: alert, oriented X3, CN II-XII intact, reflexes normal - Expanded Neurological Exam Patient oriented to: Present: person, place, time Speech: Present: fluid speech Motor strength - LUE: 5/5 Motor strength - RUE: 5/5 Motor strength - LLE: 5/5 Motor strength - RLE: 5/5 DTR: bicep (L): 2+, bicep (R): 2+, patellar (L): 2+, patellar (R): 2+, Achilles tendon (L): 2+, Achilles tendon (R): 2+ - Psychiatric Psychiatric exam: Present: normal affect, normal mood - Skin Skin exam: Present: warm, dry, intact, normal color Course Vital Signs Temperature 98.1 F 11/05/16 10:06 Pulse Rate 79 11/05/16 10:06 Respiratory Rate 18 11/05/16 10:06 Blood Pressure 175/82 11/05/16 10:06 O2 Sat by Pulse Oximetry 99 11/05/16 10:06 Temperature 98.1 F 11/05/16 14:35 Pulse Rate 72 11/05/16 14:35 Respiratory Rate 14 11/05/16 14:35 Blood Pressure 156/77 11/05/16 14:35 O2 Sat by Pulse Oximetry 98 11/05/16 14:35 Oxygen Delivery Oxygen Delivery Room Air Neuro Symptoms/Deficit - MDM Narrative Medical decision making narrative: Based on history and exam, this event may possibly be TIA with no obvious residual deficits. - Lab Data Result diagrams: 11/05/16 11:26 11/05/16 11:26 Lab Results 11/05/16 11/05/16 11/05/16 Range/Units 11:01 11:26 11:26 WBC 5.8 (4.3-11.1) K/mcL RBC 5.29 H (3.82-4.97) M/mcL Hgb 14.4 (11.5-15.4) g/dL Hct 43.0 (35.3-44.9) % MCV 81.3 L (83.0-100.0) fL MCH 27.2 L (28.0-33.3) pg MCHC 33.5 (31.6-35.5) g/dL RDW 12.8 (11.5-14.5) % Plt Count 173 (140-400) K/mcL MPV 10.7 (9.4-12.4) fL Immature Gran % 0.3 (0-4) % Seg Neutrophils % 69.5 % Lymphocytes % 17.1 % Monocytes % 10.5 % Eosinophils % 1.6 % Basophils % 1.0 % Neutrophils # 4.0 (1.6-8.9) K/mcL Lymphocytes # 1.0 (0.6-4.6) K/mcL Monocytes # 0.6 (0.0-1.3) K/mcL Eosinophils # 0.1 (0.0-0.6) K/mcL Basophils # 0.1 (0.0-0.2) K/mcL Immature Plt Fraction 7.6 H (1.1-6.1) % PT 11.0 (9.4-12.1) Seconds INR 1.0 APTT 31.4 (26.0-36.0) Seconds Sodium (136-145) mEq/L Potassium (3.5-4.5) mEq/L Chloride (98-109) mEq/L Carbon Dioxide (19-29) mEq/L BUN (7-20) mg/dL Creatinine (0.57-1.11) mg/dL Est GFR ( Amer) (> 60) Est GFR (Non-Af Amer) (> 60) BUN/Creatinine Ratio (6-26) Glucose (70-99) mg/dL Calculated Osmolality (280-300) Calcium (8.6-10.8) mg/dL Total Bilirubin (0.2-1.2) mg/dL AST (5-34) Units/L ALT (0-55) Units/L Alkaline Phosphatase (38-126) Units/L Serum Total Protein (6.0-8.3) g/dL Albumin (3.5-5.0) g/dL Globulin (2.4-3.5) g/dL Albumin/Globulin Ratio (1.1-2.2) Urine Color Yellow (Yellow) Urine Clarity Clear (Clear) Urine pH 7.0 (5.0-8.0) pH Units Ur Specific [place] 1.009 L (1.010-1.025) Urine Protein Negative (Neg-Trace) mg/dL Urine Glucose (UA) Normal (Normal) mg/dL Urine Ketones Negative (Negative) mg/dL Urine Blood Negative (Negative) Urine Nitrite Negative (Negative) Urine Bilirubin Negative (Negative) Urine Urobilinogen Normal (Normal) mg/dL Ur Leukocyte Esterase Negative (Negative) Ur Culture Indicated? NO (NO) 11/05/16 Range/Units 11:26 WBC (4.3-11.1) K/mcL RBC (3.82-4.97) M/mcL Hgb (11.5-15.4) g/dL Hct (35.3-44.9) % MCV (83.0-100.0) fL MCH (28.0-33.3) pg MCHC (31.6-35.5) g/dL RDW (11.5-14.5) % Plt Count (140-400) K/mcL MPV (9.4-12.4) fL Immature Gran % (0-4) % Seg Neutrophils % % Lymphocytes % % Monocytes % % Eosinophils % % Basophils % % Neutrophils # (1.6-8.9) K/mcL Lymphocytes # (0.6-4.6) K/mcL Monocytes # (0.0-1.3) K/mcL Eosinophils # (0.0-0.6) K/mcL Basophils # (0.0-0.2) K/mcL Immature Plt Fraction (1.1-6.1) % PT (9.4-12.1) Seconds INR APTT (26.0-36.0) Seconds Sodium 140 (136-145) mEq/L Potassium 4.1 (3.5-4.5) mEq/L Chloride 105 (98-109) mEq/L Carbon Dioxide 24 (19-29) mEq/L BUN 14 (7-20) mg/dL Creatinine 0.65 (0.57-1.11) mg/dL Est GFR ( Amer) > 60 (> 60) Est GFR (Non-Af Amer) > 60 (> 60) BUN/Creatinine Ratio 22 (6-26) Glucose 85 (70-99) mg/dL Calculated Osmolality 290 (280-300) Calcium 9.2 (8.6-10.8) mg/dL Total Bilirubin 0.5 (0.2-1.2) mg/dL AST 19 (5-34) Units/L ALT 13 (0-55) Units/L Alkaline Phosphatase 78 (38-126) Units/L Serum Total Protein 6.5 (6.0-8.3) g/dL Albumin 3.7 (3.5-5.0) g/dL Globulin 2.8 (2.4-3.5) g/dL Albumin/Globulin Ratio 1.3 (1.1-2.2) Urine Color (Yellow) Urine Clarity (Clear) Urine pH (5.0-8.0) pH Units Ur Specific [place] (1.010-1.025) Urine Protein (Neg-Trace) mg/dL Urine Glucose (UA) (Normal) mg/dL Urine Ketones (Negative) mg/dL Urine Blood (Negative) Urine Nitrite (Negative) Urine Bilirubin (Negative) Urine Urobilinogen (Normal) mg/dL Ur Leukocyte Esterase (Negative) Ur Culture Indicated? (NO) - Radiology Data Radiology results reviewed: Yes I reviewed the patient's radiology results. CXR: mild pulmonary vascular congestion CT: Hydrocephalus noted. May be related to involutional changes, though normal hydrocephalus cannot be excluded. Cerebral and cerebella parenchymal volume loss with sever chronic microvascular white matter ischemic disease. Attestation Statement - Attestation Attestation: For this encounter, I have reviewed the resident, SINGLE POINTED OPERATOR, or PA documentation, treatment plan, and medical decision making; and I have had face to face time with this patient. 81-year-old female presents with concerns of possible TIA. Patient states that she woke around 8 hours prior to arrival and had acute onset of difficulty reading, and difficulty understanding spoken words. These symptoms lasted about an hour prior to resolving without intervention. No history of CVA or TIA in the past. No history of altered mental status or dementia or anxiety. Patient states that while she had these symptoms she also became very anxious and described a buzzing in her left ear as well as tremulousness of her bilateral upper extremities. On physical examination the patient does not have any neurologic deficits. She is unsteady on her feet however the family states that this is her baseline. Patient does not follow up with her primary care provider and has a likely basal cell carcinoma to the right of her nose. CT head shows enlargement of the ventricals and white matter disease. Pt will be admitted for continuation of care for possible TIA.
[2016-11-05 11:10] LABS: Bilirubin,Urine Negative (Negative); Blood,Urine Negative (Negative); Clarity,Urine Clear (Clear); Color,Urine Yellow (Yellow); Glucose,Urine (UA) Normal (Normal); Ketones,Urine Negative (Negative); Leukocyte Esterase,Urine Negative (Negative); Nitrite,Urine Negative (Negative); Protein,Urine Negative (Neg-Trace); Specific Gravity,Urine 1.009 (1.010-1.025); Urobilinogen,Urine Normal (Normal)
[2016-11-05 11:33] LABS: Basophils # 0.1 K/mcL (0.0-0.2); Eosinophils # 0.1 K/mcL (0.0-0.6); Eosinophils % 1.6 %; Hemoglobin 14.4 g/dL (11.5-15.4); Immature Granulocytes % 0.3 % (0-4); Immature Platelets 7.6 % (1.1-6.1); Lymphocytes % 17.1 %; Mean Corpuscular HGB Conc 33.5 g/dL (31.6-35.5); Mean Corpuscular Hemoglobin 27.2 pg (28.0-33.3); Mean Corpuscular Volume 81.3 fL (83.0-100.0); Mean Platelet Volume 10.7 fL (9.4-12.4); Monocytes # 0.6 K/mcL (0.0-1.3); Monocytes % 10.5 %; Platelet Count 173 K/mcL (140-400); Red Blood Count 5.29 M/mcL (3.82-4.97); Red Cell Distribution Width 12.8 % (11.5-14.5); Segmented Neutrophils % 69.5 %
[2016-11-05 11:46] LABS: Activated Partial Thrombo Time 31.4 Seconds (26.0-36.0)
[2016-11-05 11:47] LABS: Alanine Aminotransferase 13 Units/L (0-55); Albumin 3.7 g/dL (3.5-5.0); Albumin/Globulin Ratio 1.3 (1.1-2.2); Alkaline Phosphatase 78 Units/L (38-126); Aspartate Amino Transferase 19 Units/L (5-34); BUN/Creatinine Ratio 22 (6-26); Bilirubin,Total 0.5 mg/dL (0.2-1.2); Blood Urea Nitrogen 14 mg/dL (7-20); Calcium 9.2 mg/dL (8.6-10.8); Carbon Dioxide 24 mEq/L (19-29); Chloride 105 mEq/L (98-109); Globulin 2.8 g/dL (2.4-3.5); Glucose 85 mg/dL (70-99); Osmolality,Calculated 290 (280-300); Potassium 4.1 mEq/L (3.5-4.5); Sodium 140 mEq/L (136-145); Total Protein 6.5 g/dL (6.0-8.3); eGFR For African Americans > 60 (> 60); eGFR For Non-African Americans > 60 (> 60)
[2016-11-05] MEDS ORDERED: Ibuprofen 400 MG TABLET PO PRN (15:03)
[2016-11-05] MEDS ORDERED: Mag Hydrox/Al Hydrox/Simeth 30 ML UDC PO PRN (15:03)
[2016-11-05] MEDS ORDERED: Naloxone 0.4 MG/ML INJ IVP PRN (15:03)
[2016-11-05] MEDS ORDERED: MOM Conc 10 ML UD.LIQ PO PRN (15:03)
[2016-11-05] MEDS ORDERED: Ondansetron 4 MG/2 ML VIAL IVP PRN (15:03)
--- NOTE | 2016-11-05 15:29 | Internal Med History&Physical ---
<Dimple Johnson L - Last Filed: 11/05/16 17:42> Date of Encounter: 11/05/16 Time of Encounter: 14:45 Assessment and Plan (1) TIA (transient ischemic attack) Current visit: Yes Status: Acute Confusion, dizziness onset 0200 this a.m. Symptoms resolved after about an hour. CT head shows hydrocephalus, cerebral and cerebellar parenchymal volume loss with severe white matter ischemic changes. Telemetry VS q4h Swallow evaluation Monitor labs and VS Carotid doppler Neurology consult Qualifiers: Transient cerebral ischemia type: unspecified Qualified Code(s): G45.9 - Transient cerebral ischemic attack, unspecified (2) Dizziness Current visit: Yes Status: Acute Plan as above Meclizine 25mg po x 1 now, then q6h prn (3) Headache Current visit: Yes Status: Acute Pt reports SHAFFER daily along with buzzing in her L ear. States that it is intermittent, but has been going on daily, at least 8 hours/day, for 2-3 months. Pt does not have a PCP and has not been to a doctor in years. Pain control Head CT negative for CVA Carotid doppler Qualifiers: Headache type: unspecified Headache chronicity pattern: unspecified pattern Intractability: not intractable Qualified Code(s): R51 - Headache Internal Medicine - H&P: HPI Chief complaint: confusion and unsteady gait this a.m. Admitted From: Home Plans for Post Hospital Care: Home History of present illness: Ms. Enriquez is a 81 year old female with no medical history, and who does not have a PCP, presents to the ED today for TIA symptoms. Pt awakened at 0200 and made some coffee. She says that she was trying to read and realized that she could not understand what she was reading. She became increasingly confused, went to her room and couldn't find her bed. She says that she was grabbing things on shelves in her room instead of going to her bed. She was aware of what she was doing, but could not control it. About an hour later, symptoms resolved and she took some Motrin and went to bed. Initially pt states that she did not have any pain during this episode, however, when asked why she took the Motrin, she indicated that it was for a SHAFFER that she has all the time, along with a constant "buzzing sound" in her L ear that she has had for the last 2-3 months. Pt also states that she is normally dizzy and when she walks around in her house, she has to hold onto things, including the rodriguez, to make it around without falling for the last 2-[address] shows hydrocephalus, cerebral and cerebellar parenchymal volume loss with severe white matter ischemic disease. Pt is alert, oriented, speech clear, and without deficits. Past Med Surg Social Fam HX - Past Medical History Medical history: glaucoma, kidney stones, other Psychiatric history: no psych history - Past Surgical History Surgical History: appendectomy - Social History Smoking Status: Never smoker Smokeless Tobacco Status: No Alcohol use: none Drug use: none - Family History Mother Living Status: Hx Family Cancer: Yes (Colon) Hx Family Neurologic Disorders: Yes (Dementia) Brother Living Status: Hx Family Cancer: Yes (Breast cancer) Daughter Sister Hx Family Cancer: Yes (Breast) Sister Living Status: Hx Family Cancer: (Sarcoidosis) Son Living Status: Hx Family Cardiac Disorders: Yes (PE) Internal Medicine - H&P: Meds No Known Home Drugs 11/05/16 [History] Allergies No Known Allergies Allergy (Verified 10/17/16 15:00) All Systems PM: A 10-system review of systems was performed and is negative for pertinent findings except as documented above in the HPI. - Constitutional Constitutional: no anorexia, no chills, no fatigue, no fever(s), no weakness - EENT Eyes: no blurry vision, no change in vision - Cardiovascular Cardiovascular ROS IM: no chest pain, no diaphoresis, no dyspnea, no edema, no irregular heart rhythm - Respiratory Respiratory: no dyspnea, no dyspnea on exertion, no pain on inspiration - Gastrointestinal Gastrointestinal: no diarrhea, no nausea, no vomiting - Genitourinary Genitourinary: no dysuria, no urinary frequency, no urinary hesitancy, no urinary incontinence, no urinary urgency - Integumentary Integumentary IM: no rash - Neurological Neurological ROS: confusion, dizziness, headache(s), lack of coordination, no abnormal hearing, no abnormal speech, no loss of vision, no numbness, no paresthesias, no restless legs, no tingling, no vertigo, no weakness, no other visual disturbances - Constitutional Vitals: Temp Pulse Resp BP Pulse Ox 98.1 F 72 14 156/77 98 11/05/16 14:35 11/05/16 14:35 11/05/16 14:35 11/05/16 14:35 11/05/16 14:35 General appearance: Present: A&O X 3, pleasant, answers questions appropriately - Head Head exam: Present: atraumatic, normal inspection - Eye Eye exam: Present: normal appearance, conjuntiva pink - ENT ENT exam: Present: mucous membranes dry, mucous membranes moist, normal exam - Neck Neck exam general surgery: Present: normal inspection. Absent: lymphadenopathy , tenderness, thyromegaly - Respiratory Respiratory exam: Present: CTAB. Absent: rales, respiratory distress, stridor, wheezes - Cardiovascular Cardiovascular exam: Present: RRR, +S1, +S2. Absent: irregular rhythm, tachycardia - GI/Abdominal GI/Abdominal exam: Present: normal bowel sounds, soft. Absent: tenderness - Extremities Exam Extremities exam: Present: full ROM, normal capillary refill, normal inspection , warm. Absent: cyanotic, joint swelling, pedal edema, tenderness - Neurological Exam Neurological exam: Present: alert, oriented X3, strengths equal and symetr throughout. Absent: altered, motor sensory deficit, no focal deficits, facial droop, speech deficit Internal Med - H&P Results - Labs CBC & Chem 7: 11/05/16 11:26 11/05/16 11:26 <Niki Mohr E - Last Filed: 11/06/16 07:41> Date of Encounter: 11/06/16 Internal Medicine - H&P: HPI History of present illness: Ms. Enriquez is a 81 year old female All Systems PM: A 10-system review of systems was performed and is negative for pertinent findings except as documented above in the HPI. - Constitutional Vitals: Temp Pulse Resp BP Pulse Ox 97.8 F 78 20 179/80 91 L 11/06/16 07:09 11/06/16 07:09 11/06/16 07:09 11/06/16 07:09 11/06/16 07:09 Internal Med - H&P Results - Labs CBC & Chem 7: 11/06/16 02:35 11/06/16 02:35 Labs: Short CBC 11/06/16 Range/Units 02:35 WBC 4.5 (4.3-11.1) K/mcL Hgb 13.4 (11.5-15.4) g/dL Hct 41.2 (35.3-44.9) % Plt Count 168 (140-400) K/mcL Neutrophils # 2.2 (1.6-8.9) K/mcL BMP 11/06/16 02:35 Sodium 139 Potassium 4.0 Chloride 107 Carbon Dioxide 23 BUN 15 Creatinine 0.65 Glucose 83 Calcium 8.8 - Attending Attestation I examined this patient and reviewed laboratory, imaging and all diagnostic data on 11/04/16. My medical decision-making was reviewed with MARY GRACE Johnson. I agree with the documented findings, disposition and treatment plan as described above. 81 yo F with past medical history of HTN not on any medications. Patient has not seen a doctor for years. She presents due to confusion and unsteady gait. Bp 190/93. On exam, neuro was unremarkable. She did have some imbalance when turning to the right side while walking. Ct head showed no acute intracranial process but chronic small vessel ischemic changes, hydrocephalus and cerebral and cerebellar parenchymal volume loss. Admitted for TIA due to uncontrolled BP. Plan: oral hydralazine for HTN, check bilateral doppler of carotids, and echocardiogram, and neuro consulted.
[2016-11-05] MEDS: Acetaminophen 325 MG TABLET PO PRN (15:33)
[2016-11-06 02:55] LABS: Basophils # 0.1 K/mcL (0.0-0.2); Basophils % 1.6 %; Eosinophils # 0.2 K/mcL (0.0-0.6); Eosinophils % 3.8 %; Hematocrit 41.2 % (35.3-44.9); Hemoglobin 13.4 g/dL (11.5-15.4); Immature Granulocytes % 0.4 % (0-4); Immature Platelets 8.1 % (1.1-6.1); Lymphocytes # 1.4 K/mcL (0.6-4.6); Lymphocytes % 30.6 %; Mean Corpuscular HGB Conc 32.5 g/dL (31.6-35.5); Mean Corpuscular Hemoglobin 26.8 pg (28.0-33.3); Mean Corpuscular Volume 82.4 fL (83.0-100.0); Mean Platelet Volume 11.2 fL (9.4-12.4); Monocytes # 0.6 K/mcL (0.0-1.3); Monocytes % 13.6 %; Neutrophils # 2.2 K/mcL (1.6-8.9); Platelet Count 168 K/mcL (140-400); Red Cell Distribution Width 12.9 % (11.5-14.5)
[2016-11-06 03:10] LABS: BUN/Creatinine Ratio 23 (6-26); Blood Urea Nitrogen 15 mg/dL (7-20); Calcium 8.8 mg/dL (8.6-10.8); Carbon Dioxide 23 mEq/L (19-29); Chloride 107 mEq/L (98-109); Glucose 83 mg/dL (70-99); Osmolality,Calculated 288 (280-300); Sodium 139 mEq/L (136-145); eGFR For African Americans > 60 (> 60); eGFR For Non-African Americans > 60 (> 60)
[2016-11-06] MEDS: hydrALAZINE 25 MG TABLET PO SCH ×2 (08:13→16:20)
--- NOTE | 2016-11-06 10:00 | Neurology - Consult Note ---
Date of Encounter: 11/06/16 Time of Encounter: 08:15 Assessment and Plan (1) Altered mental status, unspecified Current Visit: Yes Status: Acute Patient seems to have some mental status changes in the middle of the night seems to resolve now without any focal findings on her current neurological examination particularly no evidence of any focal motor weakness. The cousin that symptoms could be od TIA, which is possibility, and for which he could do a stroke workup including carotid duplex as well as echocardiogram and may get an MRI of the brain. At the same time I would also suggest to check for any underlying metabolic or infectious etiology that perhaps may be contributing to her symptoms particularly to check for any metabolic deficiency particularly B12 deficiency for TSH as well as for any urinary tract infection. She did have some shaking that was noted but less likely it was a seizure especially when there was no postictal state , could do an EEG but do not think that it will be helpful especially now when she is back to her baseline. Qualifiers: Altered mental status type: unspecified (2) Dizziness Current Visit: Yes Status: Acute (3) Headache Current Visit: Yes Status: Acute Qualifiers: Headache type: unspecified Headache chronicity pattern: unspecified pattern Intractability: not intractable Qualified Code(s): R51 - Headache (4) Hydrocephalus Current Visit: Yes Status: Acute Her CT scan of the head shows no evidence of dilated ventricles but at the same time she did have some underlying atrophy, ventricular dilatation could be due to Generalized atrophy but at the same time, NPH< normal pressure hydrocephalus need to be excluded, especially when she has been having some difficulty with her gait and balance for the past several months. Though she is not having TYPICAL symptoms particularly triad of ataxia, memory loss or any urinary incontinence, but certainly that need to be excluded clinically. She is also not having much tremors are any parkinsonian-type of symptoms but the difficulty with the gait and balance and this dizziness along with these mild headaches could be related to dilated ventricles. She will need an MRI of the brain particularly to exclude any structural abnormality in the ventricular system. If MRI is negative , she may need high-volume spinal tap, particularly to see if there is improvement in her gait and balance. But that could be done as an outpatient as well. She may benefit from physical therapy evaluation, radicular to see if gait and balance is stable and she is safe to ambulate without any retirement assistant. History of Present Illness HPI: Ms. Enriquez is a 81 year old female with no significant past medical history, does not have a PCP, presents to the ED today with confusion, according to pt and family, she awakened at 0200 and made some coffee, she was trying to read and realized that she could not understand what she was reading. She became increasingly confused, went to her room and couldn't find her bed. She says that she was grabbing things on shelves in her room. she noted to be shaking though NOT jerking , She was aware of what she was doing, but could not control it. she did't loose conciousness, About an hour later, symptoms resolved spontaneously, she took some Motrin and went to bed. she denies any bad Headaches or any visual changes but getting some mild to moderate headaches along with a constant "buzzing sound" in her L ear for the last 2-3 months. Pt also states that she is normally dizzy and when she walks around in her house, she has to hold onto things, including the rodriguez, to make sure she wont fall, these symptoms are happening for the last 2-[address] in ER shows concern of hydrocephalus, though its has lot of cerebral and cerebellar parenchymal volume loss with severe white matter ischemic disease. now Pt is alert, oriented, without any deficits. Past Med Surg Social Fam HX - Past Medical History Medical history: glaucoma, kidney stones, other Psychiatric history: no psych history - Past Surgical History Surgical History: appendectomy - Social History Smoking Status: Never smoker Smokeless Tobacco Status: No Alcohol use: none Drug use: none - Family History Mother Living Status: Hx Family Cancer: Yes (Colon) Hx Family Neurologic Disorders: Yes (Dementia) Brother Living Status: Hx Family Cancer: Yes (Breast cancer) Daughter Sister Hx Family Cancer: Yes (Breast) Sister Living Status: Hx Family Cancer: (Sarcoidosis) Son Living Status: Hx Family Cardiac Disorders: Yes (PE) Medications and Allergies No Known Home Drugs 11/05/16 [History] Allergies No Known Allergies Allergy (Verified 10/17/16 15:00) All Systems: A 10-system review of systems was performed and is negative for pertinent findings except as documented above in the HPI. Review of Systems: A 10-system review of systems was performed and is negative for pertinent findings except as documented above in the HPI. Physical Examination - Vital Signs Vital Signs: Initial Vital Signs Temp Pulse Resp BP Pulse Ox 98.1 F 79 18 175/82 99 11/05/16 10:06 11/05/16 10:06 11/05/16 10:06 11/05/16 10:06 11/05/16 10:06 - Constitutional General appearance: comfortable - Neurologic Detailed motor examination: full strength in all major muscle groups Motor examination - right side: 5/5: deltoids, biceps, triceps, wrist flexion, wrist extension, civil technician, hip flexors, tibialis Anterior, quadriceps, toe extension (EHL), plantarflexion Motor examination - left side: 5/5: deltoids, biceps, triceps, wrist flexion, wrist extension, hip flexors, civil technician, quadriceps, tibialis Anterior, toe extension (EHL), plantarflexion Detailed sensory examination: intact Reflex and gait examination: intact Reflexes: Biceps: 1+, Triceps: 1+, Brachioradialis: 1+, Patella: 1+, Achilles: 1 + Mental Status Examination: awake, alert, oriented to person, oriented to place, oriented to time, follows commands appropriately, answers questions appropriately, no agnosia, no aphasia, no aproxia Cranial nerve examination: PERRL, EOMI, visual sears intact, corneal reflexes brisk symmetrically, sensory to face intact, mastication intact, no facial asymmetry is present, no dysarthria, hearing is intact symmetrically, soft palate elevates bilaterally upon phonation, gag reflex intact, flexes SCM and trapezius muscles symmetrically with full power, tongue protrudes midline, no atrophy or facial fasiculations present Cerebellar examination: no dysmetria, performs finger to nose and heel to mccann symmetrically without ataxia, no gait ataxia, no truncal ataxia, no difficulty with rapid alternating movements Results - Laboratory Findings CBC and BMP: 11/06/16 02:35 11/06/16 02:35 Abnormal lab findings: Abnormal lab results RBC 5.00 M/mcL (3.82-4.97) H 11/06/16 02:35 MCV 82.4 fL (83.0-100.0) L 11/06/16 02:35 MCH 26.8 pg (28.0-33.3) L 11/06/16 02:35 Immature Plt Fraction 8.1 % (1.1-6.1) H 11/06/16 02:35 Ur Specific [place] 1.009 (1.010-1.025) L 11/05/16 11:01 Consult Discharge Plan - Plan Instructions: Ischemic Stroke (GEN), Hypertension (GEN) Referrals: NO,PCP [Primary Care Provider] -
--- NOTE | 2016-11-06 12:04 | ECHO - Doppler Report ---
Echo with Saline Contrast Name: Stacey Enriquez Date of Study: 11/06/2016 Date: 1935 Ht: 61.0 in Medical Record#: [id number] Age: 81 Wt: 151.0 lb Gender: Female BSA: 1.68 Order #: [id number] Location: [facility] Room #: [id number] Reading Physician: Madhu Katz DO, KALYANI, JOANNE BURDICK Battery Installer: Belkis Davis Ordering Physician: Niki Mohr MD Primary Physician: None Indications: Transient Ischemic Attack Impressions: LVEF 60-65%. Normal LV chamber size and function. Mild concentric left ventricular hypertrophy. Mild left ventricular diastolic dysfunction. Normal right ventricular structure and function. No evidence of PFO with agitated saline contrast. No evidence of pulmonary hypertension. No significant valvular dysfunction. Left Ventricular Wall Motion: Rest Echo Findings All wall segments showed normal motion. Findings: Study Quality * Technically adequate exam. ECG Findings * Normal sinus rhythm. Left Ventricle * LVEF 60-65%. * Normal LV chamber size and function. * Mild concentric left ventricular hypertrophy. * Mild left ventricular diastolic dysfunction. Right Ventricle * Normal right ventricular structure and function. Left Atrium * Mildly dilated left atrium. Right Atrium * Normal right atrial size. Interatrial Septum * No evidence of PFO with agitated saline contrast. Aortic Valve * Trileaflet aortic valve. * Mildly sclerotic aortic valve leaflets. * No aortic stenosis. * Trace aortic regurgitation. Mitral Valve * Mild mitral annular calcification * Mildly thickened mitral valve leaflets. * Trace mitral regurgitation. * No mitral stenosis. Tricuspid Valve * Normal tricuspid valve structure and function. * Trace tricuspid regurgitation. * No evidence of pulmonary hypertension. Pulmonic Valve * Pulmonic valve not well visualized. * No pulmonic regurgitation. Aorta * Normally sized aortic root. Pericardium * The pericardium appears normal. IVC * Normal IVC dimensions and inspiratory collapse. Pulmonary Artery * Normal visualized portions of the main pulmonary artery. History Contrast: Agitated saline 20 ml. Measurements: BP: 160/ 86 2D Normal Values RVIDd: 2.90 cm <2.7 cm IVSd: 1.20 cm 0.6 - 1.0 cm LVIDd: 3.30 cm 3.7 - 5.6 cm LVPWd: 1.30 cm 0.6 - 1.1 cm LVIDs: 2.40 cm 1.5 - 3.6 cm AO: 2.40 cm < 4.0 cm LA: 3.20 cm 2.0 - 4.0cm %FS: 27.30 cm >25 % LA volume: 42 Mitral Valve Peak E:.66 m/sec Peak A:1.20 m/sec E/A Ratio:0.6 Peak E' Lat Angelito:6.14 cm/s Peak E' Med Angelito:5.85 cm/s E/E' Lat Ratio:10.8 E/E' Med Ratio:11.3 Tricuspid Valve TV Regurg Peak Grad: 8.00mmHg TV Regurg Peak Angelito: 1.44m/sec Updated by Madhu Katz DO, FACSelwyn, HEAVENLY, JOANNE on 11/06/2016 11:59:25 AM electronically signed on 11/06/2016 11:59:51 AM with status of Final Wall Motion Amos: 1=Normal, 2=Hypokinesis, 3=Akinesis, 4=Dyskinesis, 5=Aneurysmal, 6=Hyperkinetic, X=Not Visualized (Blank)=Missing
[2016-11-06 13:32] LABS: Folate 7.8 ng/mL (7.0-31.4)
[2016-11-06] MEDS ORDERED: *HR* HYDROmorphone (PF) 1 MG/ML SYRINGE IVP PRN (18:11)
[2016-11-06] MEDS ORDERED: traZODone 50 MG TABLET PO PRN (18:15)
[2016-11-06] MEDS ORDERED: *HR* LORazepam 2 MG/ML VIAL IVP PRN (18:16)
[2016-11-06] MEDS ORDERED: Ondansetron 4 MG/2 ML VIAL IVP PRN (18:17)
--- NOTE | 2016-11-06 18:20 | Internal Med Progress Note ---
Date of Encounter: 11/06/16 Time of Encounter: 12:30 (AND [id number]) - Assessment and plan (1) NPH (normal pressure hydrocephalus) Current Visit: Yes Status: Acute Assessment and plan: Imaging consistent with normal pressure hydrocephalus. Patient with urinary incontinence, worsening dementia, and gait abnormalities. Suspect idiopathic. No source for infection, trauma, tumor, or hemorrhage have been identified. Neurology on board, plan is to proceed with a lumbar puncture with high-volume tap. On examination, patient alert and oriented 3. She continues to endorse her chronic headache as well as chronic ringing in her left ear. OT and PT consultations are pending. ITS Impressions Head CT 11/05/16 10:22 IMPRESSION: 1. There is hydrocephalus. While this could be related to involutional changes, normal pressure hydrocephalus cannot be excluded. 2. Cerebral and cerebellar parenchymal volume loss with severe chronic microvascular white matter ischemic disease. D/ / 11/05/2016 11:16:48 Sanjeev Gould MD / kayla Interpreting Provider: Sanjeev Gould MD Brain MRI 11/06/16 10:11 IMPRESSION: 1. No evidence of an acute infarct. 2. Prominence of the lateral ventricles, which could be related to hydrocephalus versus central parenchymal volume loss. 3. Confluent periventricular T2 hyperintensity is seen, which could represent transependymal flow of CSF. 4. Chronic microvascular ischemic changes. 5. No abnormal enhancement seen in the brain. D/ / Saeed Beltran MD / Saeed Beltran MD Interpreting Provider: Saeed Beltran MD (2) HTN (hypertension) Current Visit: Yes Status: Chronic Assessment and plan: Unclear if this is acute or chronic but suspect chronic. Started on hydralazine , remains hypertensive, will change to amlodipine. Given the hydralazine as 3 times a day dosing, suspect patient will not be compliant, will change to once daily dosing medications. Will add lisinopril if amlodipine ineffective on its own. (3) Dizziness Current Visit: Yes Status: Acute Assessment and plan: Patient currently denies dizziness, continue meclizine as needed (4) Headache Current Visit: Yes Status: Acute Assessment and plan: Pain medication ordered, LP pending Qualifiers: Headache type: unspecified Headache chronicity pattern: unspecified pattern Intractability: not intractable Qualified Code(s): R51 - Headache (5) TIA (transient ischemic attack) Current Visit: Yes Status: Ruled-out Assessment and plan: Unlikely, symptoms and workup to this point more consistent with NPH (6) Ventricular dilatation Current Visit: Yes Status: Acute - Subjective Interval history: Patient seen and examined. On examination, patient sitting upright in bed conversing with her family. Patient complaining of her chronic headache as well as chronic ringing in her left ear. Patient stating she is tired and has not been able to sleep. - Constitutional Vitals: Temp Pulse Resp BP Pulse Ox 98.5 F 80 16 154/81 95 11/06/16 16:58 11/06/16 16:58 11/06/16 16:58 11/06/16 16:58 11/06/16 16:58 General appearance: Present: A&O X 3, pleasant, no acute distress, answers questions appropriately - Head Head exam: Present: atraumatic, normocephalic - Eye Eye exam: Present: PERRL, conjuntiva pink, sclera anicteric Pupils: Present: PERRL - Neck Neck exam general surgery: Present: supple, trachea midline. Absent: lymphadenopathy - Respiratory Respiratory exam: Present: CTAB. Absent: accessory muscle use, rales, respiratory distress, rhonchi, wheezes - Cardiovascular Cardiovascular exam: Present: RRR, +S1, +S2. Absent: diastolic murmur, gallop, rubs, systolic murmur - GI/Abdominal GI/Abdominal exam: Present: normal bowel sounds, soft, no peritoneal signs. Absent: distended, tenderness - Extremities Exam Extremities exam: Present: warm, radial pulses palpable and symetrical. Absent : calf tenderness, cyanotic, pedal edema - Neurological Exam Neurological exam: Present: alert, CN II-XII intact, oriented X3, no focal deficits, strengths equal and symetr throughout. Absent: pronater drift, facial droop, speech deficit - Skin Skin exam: Present: dry, intact, normal color, warm Internal Medicine: Result - Labs CBC & Chem 7: 11/06/16 02:35 11/06/16 02:35 Labs: Short CBC 11/06/16 Range/Units 02:35 WBC 4.5 (4.3-11.1) K/mcL Hgb 13.4 (11.5-15.4) g/dL Hct 41.2 (35.3-44.9) % Plt Count 168 (140-400) K/mcL Neutrophils # 2.2 (1.6-8.9) K/mcL BMP 11/06/16 02:35 Sodium 139 Potassium 4.0 Chloride 107 Carbon Dioxide 23 BUN 15 Creatinine 0.65 Glucose 83 Calcium 8.8 - ABG Interpretation ABG results: PT/INR, D-dimer PT 11.0 Seconds (9.4-12.1) 11/05/16 11:26 - Impressions Impressions Brain MRI 11/06/16 10:11 IMPRESSION: 1. No evidence of an acute infarct. 2. Prominence of the lateral ventricles, which could be related to hydrocephalus versus central parenchymal volume loss. 3. Confluent periventricular T2 hyperintensity is seen, which could represent transependymal flow of CSF. 4. Chronic microvascular ischemic changes. 5. No abnormal enhancement seen in the brain. D/ / Saeed Beltran MD / Saeed Beltran MD Interpreting Provider: Saeed Beltran MD Consult Discharge Plan - Plan Instructions: Ischemic Stroke (GEN), Hypertension (GEN) Referrals: NO,PCP [Primary Care Provider] -
[2016-11-06] MEDS: amLODIPine 5 MG TABLET PO SCH (20:44)
[2016-11-07 05:07] LABS: Basophils # 0.1 K/mcL (0.0-0.2); Basophils % 1.6 %; Eosinophils # 0.2 K/mcL (0.0-0.6); Eosinophils % 2.9 %; Hematocrit 41.7 % (35.3-44.9); Hemoglobin 13.6 g/dL (11.5-15.4); Immature Granulocytes % 0.2 % (0-4); Lymphocytes # 1.2 K/mcL (0.6-4.6); Lymphocytes % 23.4 %; Mean Corpuscular HGB Conc 32.6 g/dL (31.6-35.5); Mean Corpuscular Hemoglobin 26.6 pg (28.0-33.3); Mean Corpuscular Volume 81.4 fL (83.0-100.0); Mean Platelet Volume 10.9 fL (9.4-12.4); Monocytes # 0.6 K/mcL (0.0-1.3); Monocytes % 12.5 %; Platelet Count 169 K/mcL (140-400); Red Blood Count 5.12 M/mcL (3.82-4.97); Red Cell Distribution Width 12.9 % (11.5-14.5); Segmented Neutrophils % 59.4 %
[2016-11-07 05:12] LABS: Prothrombin Time 11.3 Seconds (9.4-12.1)
--- NOTE | 2016-11-07 08:52 | Neurology Progress Note ---
Date of Encounter: 11/07/16 Time of Encounter: 08:06 Assessment and Plan (1) Hydrocephalus Current Visit: Yes Status: Acute MRI of the brain did not show any acute infract, there is again Dilated ventricles noted no sign of obstruction, the patient did not have any tremors but according to the family for the last several months she has been having significant problems with her gait and balance and also complaining of some urinary urgency, at the same time they have also noted some difficulty with her short-term memory. Considering the symptoms and imaging abnormalities particularly dilatation of the ventricles is possible that her symptoms could be related to normal pressure hydrocephalus. Patient will require high volume spinal tap We will schedule under radiology fluoroscopic guided due to the fact that she did have some degenerative changes of her lumbar spine. And if there is improvement in her gait and balance after the spinal tap she would probably require a shunt placement. Discussed with the patient's family and patients explained that depending on the result if she would require a ventricular shunt we will refer her to [facility] for neurosurgical evaluation That could be done as an outpatient. She would certainly need physical therapy and may benefit from short-term rehabilitation (2) Altered mental status, unspecified Current Visit: Yes Status: Acute (3) Dizziness Current Visit: Yes Status: Acute (4) Headache Current Visit: Yes Status: Acute Qualifiers: Headache type: unspecified Headache chronicity pattern: unspecified pattern Intractability: not intractable Subjective Interval history: Patient is stable denies any other new symptoms or any other new problems or all remains the same, MRI did not show any acute infarct, discussed with the family did report that she has been having significant problem with her gait and balance for the past several months not explained by anything else attributed to old age at the same time she is also having some urinary issues as well though she denies any tremors or any shuffling gait Objective - Constitutional Vitals: Temp Pulse Resp BP Pulse Ox 97.9 F 79 15 163/84 93 L 11/07/16 07:26 11/07/16 07:26 11/07/16 07:26 11/07/16 07:26 11/07/16 07:26 - Neurological Exam Motor Examination: Present: full strength in all major muscle groups Motor examination - left side: 5/5: deltoids, biceps, triceps, wrist flexion, wrist extension, hip flexors, woods rider, quadriceps, tibialis Anterior, toe extension (EHL), plantarflexion Sensation intact: Present: intact Reflex and gait examination: intact Mental Status Examination: Present: awake, alert, oriented to person, oriented to place, oriented to time, follows commands appropriately, answers questions appropriately, no agnosia, no aphasia, no aproxia Cranial nerve examination: Present: PERRL, EOMI, visual sears intact, corneal reflexes brisk symmetrically, sensory to face intact, mastication intact, no facial asymmetry is present, no dysarthria, hearing is intact symmetrically, soft palate elevates bilaterally upon phonation, gag reflex intact, flexes SCM and trapezius muscles symmetrically with full power, tongue protrudes midline, no atrophy or facial fasiculations present Cerebellar examination: Present: no dysmetria, performs finger to nose and heel to mccann symmetrically without ataxia, no gait ataxia, no truncal ataxia, no difficulty with rapid alternating movements Results - Laboratory Findings CBC and BMP: 11/07/16 04:35 11/06/16 02:35 Abnormal lab findings: Abnormal lab results RBC 5.12 M/mcL (3.82-4.97) H 11/07/16 04:35 MCV 81.4 fL (83.0-100.0) L 11/07/16 04:35 MCH 26.6 pg (28.0-33.3) L 11/07/16 04:35 Immature Plt Fraction 8.1 % (1.1-6.1) H 11/06/16 02:35 25-OH Vitamin D Total 6 ng/mL (30-80) L 11/06/16 10:44 Ur Specific [place] 1.009 (1.010-1.025) L 11/05/16 11:01 Consult Discharge Plan - Plan Instructions: Ischemic Stroke (GEN), Hypertension (GEN) Referrals: NO,PCP [Primary Care Provider] -
[2016-11-07] MEDS: amLODIPine 5 MG TABLET PO SCH (09:08)
[2016-11-07] MEDS: Cholecalciferol (D-3) 1,000 UNIT TABLET PO SCH (09:08)
[2016-11-07] MEDS: Acetaminophen 325 MG TABLET PO PRN (09:13)
--- NOTE | 2016-11-07 10:00 | Internal Med Progress Note ---
<Rob Monet - Last Filed: 11/08/16 10:50> Date of Encounter: 11/07/16 Time of Encounter: 10:00 - Assessment and plan (1) Hydrocephalus Current Visit: Yes Status: Acute Assessment and plan: Ms. Enriquez recently developed confusion, urinary incontinence, difficulty with gait Initial CT head showed ventricular enlargement with white matter disease. Subsequent MRI showed prominent lateral ventricles, hydrocephalus versus central parenchymal volume loss. Patient has high volume lumbar puncture scheduled for this afternoon Patient is anxious regarding procedure, PRN Ativan is ordered (2) Altered mental status, unspecified Current Visit: Yes Status: Acute Assessment and plan: Likely secondary to hydrocephalus Lumbar puncture pending Qualifiers: Altered mental status type: unspecified Qualified Code(s): R41.82 - Altered mental status, unspecified (3) Dizziness Current Visit: Yes Status: Acute Assessment and plan: Continue meclizine as needed (4) Headache Current Visit: Yes Status: Acute Assessment and plan: Continue pain medication as needed Qualifiers: Headache type: unspecified Headache chronicity pattern: unspecified pattern Intractability: not intractable Qualified Code(s): R51 - Headache (5) HTN (hypertension) Current Visit: Yes Status: Chronic Assessment and plan: Blood pressure has been stable on amlodipine Qualifiers: Hypertension type: essential hypertension Qualified Code(s): I10 - Essential (primary) hypertension - Subjective Interval history: Ms. Enriquez was seen and examined at bedside this morning with her daughter and 2 granddaughters present in the room. She was lying comfortably in bed in no apparent distress. She denies any current complaints - Constitutional Vitals: Temp Pulse Resp BP Pulse Ox 97.9 F 79 15 163/84 93 L 11/07/16 07:26 11/07/16 07:26 11/07/16 07:26 11/07/16 07:26 11/07/16 07:26 General appearance: Present: A&O X 3, pleasant, no acute distress, answers questions appropriately - Head Head exam: Present: atraumatic, normocephalic - Eye Eye exam: Present: PERRL, conjuntiva pink, sclera anicteric Pupils: Present: PERRL - Neck Neck exam general surgery: Present: supple, trachea midline. Absent: lymphadenopathy - Respiratory Respiratory exam: Present: CTAB. Absent: accessory muscle use, rales, rhonchi, wheezes - Cardiovascular Cardiovascular exam: Present: RRR, +S1, +S2. Absent: diastolic murmur, gallop, rubs, systolic murmur - GI/Abdominal GI/Abdominal exam: Present: normal bowel sounds, soft, no peritoneal signs. Absent: distended, tenderness - Extremities Exam Extremities exam: Present: warm, radial pulses palpable and symetrical. Absent : calf tenderness, cyanotic, pedal edema - Neurological Exam Neurological exam: Present: CN II-XII intact, oriented X3, no focal deficits. Absent: pronater drift, facial droop, speech deficit - Skin Skin exam: Present: dry, intact Internal Medicine: Result - Labs CBC & Chem 7: 11/08/16 04:26 11/08/16 04:26 Labs: Short CBC 11/07/16 Range/Units 04:35 WBC 5.1 (4.3-11.1) K/mcL Hgb 13.6 (11.5-15.4) g/dL Hct 41.7 (35.3-44.9) % Plt Count 169 (140-400) K/mcL Neutrophils # 3.0 (1.6-8.9) K/mcL - ABG Interpretation ABG results: PT/INR, D-dimer PT 11.3 Seconds (9.4-12.1) 11/07/16 04:35 Consult Discharge Plan - Plan Instructions: Ischemic Stroke (GEN), Hypertension (GEN) Referrals: NO,PCP [Primary Care Provider] - <Yousif Pinedo - Last Filed: 11/08/16 13:50> Date of Encounter: 11/08/16 - Constitutional Vitals: Temp Pulse Resp BP Pulse Ox 98.1 F 80 16 132/77 92 L 11/08/16 09:50 11/08/16 09:50 11/08/16 09:50 11/08/16 09:50 11/08/16 09:50 Internal Medicine: Result - Labs CBC & Chem 7: 11/08/16 04:26 11/08/16 04:26 Labs: Short CBC 11/08/16 Range/Units 04:26 WBC 5.8 (4.3-11.1) K/mcL Hgb 14.1 (11.5-15.4) g/dL Hct 42.9 (35.3-44.9) % Plt Count 146 (140-400) K/mcL Neutrophils # 4.2 (1.6-8.9) K/mcL BMP 11/08/16 04:26 Sodium 138 Potassium 4.2 Chloride 106 Carbon Dioxide 24 BUN 18 Creatinine 0.63 Glucose 123 H Calcium 9.2 - ABG Interpretation ABG results: PT/INR, D-dimer PT 11.3 Seconds (9.4-12.1) 11/07/16 04:35 - Impressions Impressions Lumbar Puncture Fluoroscopy 11/08/16 08:00 IMPRESSION: Successful fluoroscopic-guided lumbar puncture. D/ / Mihai Davis MD / Mihai Davis MD Interpreting Provider: Mihai Davis MD - Attending Attestation I examined this patient and my medical decision-making was reviewed with the EQUIPMENT MAINTENANCE TECH/PA/Advanced Practice Nurse/Resident Physician. I agree with the documented findings, disposition and treatment plan as described except to the extent set forth below. Seen and examined. LP not done due to significant drowsiness after sedation. Will follow. Neuro input noted. D/W patient and her family members in detail.
--- NOTE | 2016-11-07 13:07 | Carotid Imaging Report ---
Carotid Duplex Patient Name:Stacey Enriquez Order Number:[id number] Procedure Date:11/06/2016 Date:4Age:81 yrs Gender:Female Location:[facility] Room #: 3B44 County Engineer:Belkis Davis Referring MD:Niki Mohr MD brimmer blocker:None Reading MD:Luis Alberto Srinivasan MD Impressions: The right carotid artery has minimal plaque throughout. The left carotid artery is normal throughout. Recommendations: After imaging the patient returned to their room. Findings Carotid Duplex: Right: The right proximal common carotid artery has a PSV of 112 cm/s and a EDV of 20 cm/s. The right mid common carotid artery has a PSV of 94 cm/s and a EDV of 22 cm/s. The right distal common carotid artery has a PSV of 70 cm/s and a EDV of 18 cm/s. There is nonstenotic plaque in the right bifurcation with a PSV of 75 cm/s and a EDV of 18 cm/s. There is smooth heterogeneous plaque. The right proximal internal carotid artery has a PSV of 59 cm/s and a EDV of 16 cm/s. The right mid internal carotid artery has a PSV of 77 cm/s and a EDV of 25 cm/s. The right distal internal carotid artery has a PSV of 82 cm/s and a EDV of 28 cm/s. The right eca has a PSV of 102 cm/s and a EDV of 16 cm/s. The right vertebral artery has a PSV of 61 cm/s and a EDV of 19 cm/s. Left: The left proximal common carotid artery has a PSV of 86 cm/s and a EDV of 20 cm/s. The left mid common carotid artery has a PSV of 73 cm/s and a EDV of 20 cm/s. The left distal common carotid artery has a PSV of 77 cm/s and a EDV of 20 cm/s. The left bifurcation has a PSV of 67 cm/s and a EDV of 19 cm/s. The left proximal internal carotid artery has a PSV of 68 cm/s and a EDV of 20 cm/s. The left mid internal carotid artery has a PSV of 68 cm/s and a EDV of 19 cm/s. The left distal internal carotid artery has a PSV of 79 cm/s and a EDV of 27 cm/s. The left eca has a PSV of 110 cm/s and a EDV of 9 cm/s. The left vertebral artery has a PSV of 33 cm/s and a EDV of 10 cm/s. Carotid Results Right PSV EDV Assessment Proximal CCA 112 20 Mid CCA 94 22 Distal CCA 70 18 Bifurcation 75 18 Proximal ICA 59 16 Mid ICA 77 25 Distal ICA 82 28 ECA 102 16 Vertebral Artery 61 19 Left PSV EDV Assessment Proximal CCA 86 20 Mid CCA 73 20 Distal CCA 77 20 Bifurcation 67 19 Proximal ICA 68 20 Mid ICA 68 19 Distal ICA 79 27 ECA 110 9 Vertebral Artery 33 10 Ratio's Right ICA/CCA Ratio: 0.90 ICA/CCA Values: 82/94 Left ICA/CCA Ratio: 1.10 ICA/CCA Values: 79/73 Updated by Luis Alberto Srinivasan MD on 11/07/2016 1:01:02 PM electronically signed on 11/07/2016 1:01:15 PM with status of Final
[2016-11-07] MEDS ORDERED: 0.9 % Sodium Chloride 500 ML ONE (15:50)
[2016-11-07] MEDS ORDERED: 0.9 % Sodium Chloride 500 ML IVC ONE (16:22)
[2016-11-07] MEDS: D5% in 0.45% NACL 1,000 ML IVC SCH (18:58)
[2016-11-08] MEDS: D5% in 0.45% NACL 1,000 ML IVC SCH ×2 (02:46→14:02)
[2016-11-08 04:51] LABS: Basophils % 0.5 %; Eosinophils # 0.1 K/mcL (0.0-0.6); Eosinophils % 1.7 %; Hematocrit 42.9 % (35.3-44.9); Hemoglobin 14.1 g/dL (11.5-15.4); Immature Granulocytes % 0.3 % (0-4); Lymphocytes # 0.9 K/mcL (0.6-4.6); Lymphocytes % 14.8 %; Mean Corpuscular HGB Conc 32.9 g/dL (31.6-35.5); Mean Corpuscular Hemoglobin 27.3 pg (28.0-33.3); Mean Corpuscular Volume 83.1 fL (83.0-100.0); Mean Platelet Volume 11.5 fL (9.4-12.4); Monocytes # 0.6 K/mcL (0.0-1.3); Monocytes % 9.6 %; Neutrophils # 4.2 K/mcL (1.6-8.9); Platelet Count 146 K/mcL (140-400); Red Blood Count 5.16 M/mcL (3.82-4.97); Segmented Neutrophils % 73.1 %
[2016-11-08 05:10] LABS: BUN/Creatinine Ratio 29 (6-26); Blood Urea Nitrogen 18 mg/dL (7-20); Calcium 9.2 mg/dL (8.6-10.8); Carbon Dioxide 24 mEq/L (19-29); Chloride 106 mEq/L (98-109); Glucose 123 mg/dL (70-99); Osmolality,Calculated 289 (280-300); Potassium 4.2 mEq/L (3.5-4.5); Sodium 138 mEq/L (136-145); eGFR For African Americans > 60 (> 60); eGFR For Non-African Americans > 60 (> 60)
[2016-11-08 09:50] VITALS: BP 132/77
[2016-11-08] MEDS: Cholecalciferol (D-3) 1,000 UNIT TABLET PO SCH (09:51)
[2016-11-08] MEDS: amLODIPine 5 MG TABLET PO SCH (09:51)
--- NOTE | 2016-11-08 11:38 | Internal Med Progress Note ---
<Rob Monet - Last Filed: 11/08/16 11:36> Date of Encounter: 11/08/16 Time of Encounter: 09:00 - Assessment and plan (1) Hydrocephalus Current Visit: Yes Status: Acute Assessment and plan: High-volume lumbar puncture performed this morning, 14 mL drained Patient needs to rest in bed for the next few hours and then can ambulate to help evaluate for improvement in gait Depending on response, may need consultation with neurosurgery in [place] for shunt placement Possible discharge later today (2) Altered mental status, unspecified Current Visit: Yes Status: Acute Assessment and plan: Likely secondary to hydrocephalus Qualifiers: Altered mental status type: unspecified Qualified Code(s): R41.82 - Altered mental status, unspecified (3) Dizziness Current Visit: Yes Status: Acute Assessment and plan: Continue meclizine as needed (4) Headache Current Visit: Yes Status: Acute Assessment and plan: Continue pain medication as needed Qualifiers: Headache type: unspecified Headache chronicity pattern: unspecified pattern Intractability: not intractable Qualified Code(s): R51 - Headache (5) HTN (hypertension) Current Visit: Yes Status: Chronic Assessment and plan: Blood pressure has been stable on amlodipine Qualifiers: Hypertension type: essential hypertension Qualified Code(s): I10 - Essential (primary) hypertension - Subjective Interval history: Ms. Enriquez was seen and examined at bedside this morning with her daughter and granddaughter present in the room. She was lying comfortably in bed in no apparent distress. She denies any current complaints - Constitutional Vitals: Temp Pulse Resp BP Pulse Ox 98.1 F 80 16 132/77 92 L 11/08/16 09:50 11/08/16 09:50 11/08/16 09:50 11/08/16 09:50 11/08/16 09:50 General appearance: Present: A&O X 3, pleasant, no acute distress, answers questions appropriately - Head Head exam: Present: atraumatic, normocephalic - Eye Eye exam: Present: PERRL, conjuntiva pink, sclera anicteric Pupils: Present: PERRL - Neck Neck exam general surgery: Present: supple, trachea midline. Absent: lymphadenopathy - Respiratory Respiratory exam: Present: CTAB. Absent: accessory muscle use, rales, rhonchi, wheezes - Cardiovascular Cardiovascular exam: Present: RRR, +S1, +S2. Absent: diastolic murmur, gallop, rubs, systolic murmur - GI/Abdominal GI/Abdominal exam: Present: normal bowel sounds, soft, no peritoneal signs. Absent: distended, tenderness - Extremities Exam Extremities exam: Present: warm, radial pulses palpable and symetrical. Absent : calf tenderness, cyanotic, pedal edema - Neurological Exam Neurological exam: Present: CN II-XII intact, oriented X3, no focal deficits. Absent: pronater drift, facial droop, speech deficit - Skin Skin exam: Present: dry, intact Internal Medicine: Result - Labs CBC & Chem 7: 11/08/16 04:26 11/08/16 04:26 Labs: Short CBC 11/08/16 Range/Units 04:26 WBC 5.8 (4.3-11.1) K/mcL Hgb 14.1 (11.5-15.4) g/dL Hct 42.9 (35.3-44.9) % Plt Count 146 (140-400) K/mcL Neutrophils # 4.2 (1.6-8.9) K/mcL BMP 11/08/16 04:26 Sodium 138 Potassium 4.2 Chloride 106 Carbon Dioxide 24 BUN 18 Creatinine 0.63 Glucose 123 H Calcium 9.2 - ABG Interpretation ABG results: PT/INR, D-dimer PT 11.3 Seconds (9.4-12.1) 11/07/16 04:35 - Impressions Impressions Lumbar Puncture Fluoroscopy 11/08/16 08:00 IMPRESSION: Successful fluoroscopic-guided lumbar puncture. D/ / Mihai Davis MD / Mihai Davis MD Interpreting Provider: Mihai Davis MD Consult Discharge Plan - Plan Instructions: Ischemic Stroke (GEN), Hypertension (GEN) Referrals: NO,PCP [Primary Care Provider] - <Yousif Pinedo - Last Filed: 11/08/16 13:52> Date of Encounter: 11/08/16 - Constitutional Vitals: Temp Pulse Resp BP Pulse Ox 98.1 F 80 16 132/77 92 L 11/08/16 09:50 11/08/16 09:50 11/08/16 09:50 11/08/16 09:50 11/08/16 09:50 Internal Medicine: Result - Labs CBC & Chem 7: 11/08/16 04:26 11/08/16 04:26 Labs: Short CBC 11/08/16 Range/Units 04:26 WBC 5.8 (4.3-11.1) K/mcL Hgb 14.1 (11.5-15.4) g/dL Hct 42.9 (35.3-44.9) % Plt Count 146 (140-400) K/mcL Neutrophils # 4.2 (1.6-8.9) K/mcL BMP 11/08/16 04:26 Sodium 138 Potassium 4.2 Chloride 106 Carbon Dioxide 24 BUN 18 Creatinine 0.63 Glucose 123 H Calcium 9.2 - ABG Interpretation ABG results: PT/INR, D-dimer PT 11.3 Seconds (9.4-12.1) 11/07/16 04:35 - Impressions Impressions Lumbar Puncture Fluoroscopy 11/08/16 08:00 IMPRESSION: Successful fluoroscopic-guided lumbar puncture. D/ / Mihai Davis MD / Mihai Davis MD Interpreting Provider: Mihai Davis MD - Attending Attestation I examined this patient and my medical decision-making was reviewed with the PANELBOARD OPERATOR/PA/Advanced Practice Nurse/Resident Physician. I agree with the documented findings, disposition and treatment plan as described except to the extent set forth below. Agree with resident's note. Stable now. Had LP done. Will monitor and possible d/c this evening. needs outpatient follow up with neuro. D/W patient and her family members.
--- NOTE | 2016-11-08 14:39 | Discharge Summary ---
<Luis Alberto Stein - Last Filed: 11/10/16 17:29> Date of Encounter: 11/10/16 Time of Encounter: 14:35 - Discharge Diagnosis (1) Hydrocephalus Priority: Primary Status: Acute (2) Ventricular dilatation Priority: Primary Status: Acute Comments: dilation of the lateral ventricles of the brain (3) HTN (hypertension) Priority: Secondary Status: Chronic Qualifiers: Hypertension type: essential hypertension Qualified Code(s): I10 - Essential (primary) hypertension (4) Altered mental status, unspecified Priority: Secondary Status: Acute Qualifiers: Altered mental status type: unspecified Qualified Code(s): R41.82 - Altered mental status, unspecified (5) Dizziness Priority: Secondary Status: Acute (6) Headache Priority: Secondary Status: Acute Qualifiers: Headache type: unspecified Headache chronicity pattern: unspecified pattern Intractability: not intractable Qualified Code(s): R51 - Headache - Discharge Medications Prescriptions: Amlodipine [Norvasc] 5 mg PO DAILY #30 tablet Aspirin Enteric Coated [Aspirin EC] 81 mg PO DAILY #30 tablet. Cholecalciferol (D-3) [Vitamin D] 1,000 unit PO DAILY 30 Days Docusate [Colace] 100 mg PO BID PRN #30 capsule PRN Reason: Constipation Lisinopril [Zestril] 5 mg PO DAILY #30 tablet Meclizine [Antivert] 25 mg PO TID PRN 30 Days PRN Reason: Dizziness TraZODone 50 mg PO HS PRN #30 tablet PRN Reason: Insomnia Home Medications: Amlodipine [Norvasc] 5 mg PO DAILY #30 tablet 11/08/16 [Rx] Aspirin Enteric Coated [Aspirin EC] 81 mg PO DAILY #30 tablet. 11/08/16 [Rx] Cholecalciferol (D-3) [Vitamin D] 1,000 unit PO DAILY 30 Days 11/08/16 [Rx] Docusate [Colace] 100 mg PO BID PRN #30 capsule 11/08/16 [Rx] Lisinopril [Zestril] 5 mg PO DAILY #30 tablet 11/08/16 [Rx] Meclizine [Antivert] 25 mg PO TID PRN 30 Days 11/08/16 [Rx] TraZODone 50 mg PO HS PRN #30 tablet 11/08/16 [Rx] Allergies/Adverse Reactions: Allergies Hydromorphone [From Dilaudid] Adverse Reaction (Verified 11/08/16 05:34) Unresponsive ativan Adverse Reaction (Uncoded 11/07/16 19:02) Unresponsive Date of admission: 11/06/16 18:12 Primary care physician: PCP NO Discharging clinician: Luis Alberto Stein Anticipated date of discharge: 11/08/16 - Patient Status Disposition: Home, Self-Care Condition: Good Functional capacity at discharge: uses cane/walker - Ambulatory Orders [facility] Orders Time Frame: 1 Year, Location: Any location - Discharge Instructions Instructions: Lisinopril (By mouth), Trazodone (By mouth), Meclizine (By mouth) , Amlodipine (By mouth), Kidney Stones (DC), Tension Headache (DC), Ischemic Stroke (DC), Hypertension (GEN), Altered Mental Status (GEN), Dizziness (GEN) Follow Up With: Leonela Ortiz CPS TEAM LEAD [Advanced Practice Nurse] - 11/09/16 9:10 am - Diet and Activity Activity: ambulate only with your walker Diet: advance to your usual diet, low fat, low cholesterol, low salt diet Hospital course: Ms. Enriquez is a 81 year old female who was admitted to [facility] with altered mentation and concerns for possible TIa. She would undergo MRI which revealed hydrocephalus with increased size of the lateral ventricles. Chronic microvascular changes. No acute intracranial abnormalities were identified. She had bilateral carootid duplex US which revealed a normal left carotid and minimal plaque in the right carotid. An echocardiogram revealed an EF of 60-65% , mild concentric hypertrophy of the left ventricle, mild diastolic dysfunction , No PFO, No Pulmonary HTN, and no significant valvular abnormalities. She was seen in consultation by Neurology who recommended a high volume lumbar puncture. She had a fluoroscopic guided LP today and had 14mL removed. Currently her vital signs are within normal limits. No major abnormalities on her lab work today. I did observe her ambulate and I would consider her gait as magnetic. However she dose occasionally lift her feet and appears to wlak normally for a few steps. However she then returns to a shuffling gate. I observed her for approximately 100 feet. She also used a walker for balance. She also had hypertension and was started on Norvasc and Lisinopril. Currently her Blood pressure is well controlled. We did discuss options of ECF for rehab and home health. However patient has declined these. she dose assistance at home with the aide of her daughters and grand daughters. Patient is requesting to be discharged today and she is medically stable. We will discharge her today with close follow with Neurology. we will also set her up with a PCP prior to leaving. - Time Spent with Patient Total time spent providing and/or coordinating discharge services: Greater than 30 minutes (I spent approximately 33 minutes discharging this patient.) - Constitutional Vitals: Temp Pulse Resp BP Pulse Ox 98.1 F 80 16 132/77 92 L 11/08/16 09:50 11/08/16 09:50 11/08/16 09:50 11/08/16 09:50 11/08/16 09:50 General appearance: Present: A&O X 3, pleasant, no acute distress, answers questions appropriately - Head Head exam: Present: atraumatic, normocephalic - Eye Eye exam: Present: PERRL, conjuntiva pink, sclera anicteric Pupils: Present: PERRL - Neck Neck exam general surgery: Present: supple, trachea midline. Absent: lymphadenopathy - Respiratory Respiratory exam: Present: CTAB. Absent: accessory muscle use, rales, rhonchi, wheezes - Cardiovascular Cardiovascular exam: Present: RRR, +S1, +S2. Absent: diastolic murmur, gallop, rubs, systolic murmur - GI/Abdominal GI/Abdominal exam: Present: normal bowel sounds, soft, no peritoneal signs. Absent: distended, tenderness - Extremities Exam Extremities exam: Present: warm, radial pulses palpable and symetrical. Absent : calf tenderness, cyanotic, pedal edema - Neurological Exam Neurological exam: Present: abnormal gait (magnetic but not wide. she dose occasionally lift her feet. ), CN II-XII intact, oriented X3, no focal deficits. Absent: pronater drift, facial droop, speech deficit - Skin Skin exam: Present: dry, intact <Yousif Pinedo - Last Filed: 11/11/16 07:29> Date of Encounter: 11/11/16 Date of admission: 11/06/16 18:12 Primary care physician: PCP NO Hospital course: Ms. Enriquez is a 81 year old female - Time Spent with Patient Total time spent providing and/or coordinating discharge services: - Constitutional Vitals: Temp Pulse Resp BP Pulse Ox 98.1 F 80 16 132/77 92 L 11/08/16 09:50 11/08/16 09:50 11/08/16 09:50 11/08/16 09:50 11/08/16 09:50 - Attending Attestation I examined this patient and my medical decision-making was reviewed with the REFRIGERATOR CABINETMAKER/PA/Advanced Practice Nurse/Resident Physician. I agree with the documented findings, disposition and treatment plan as described except to the extent set forth below. D/C home. Follow with PCP and neurology. Agree with Dr. Stein.
== END 2016-11-08 16:22 | disposition home or self-care (01) | DRG 30 ==
LOC: EMEROO 10:03 → 3BNU 10:03 → SUATTDRO 12:28 → 3BNU 13:08 → SUATTDRO 11-06 18:12
PROVIDERS: ADMIT Internal Medicine; ATTEND Internal Medicine

== ENCOUNTER 2018-05-27 01:47 | Inpatient (IN) ==
[2018-05-27] MEDS ORDERED: Ondansetron 4 MG/2 ML VIAL IVP ONE ×3 (02:19→10:01)
[2018-05-27] MEDS ORDERED: *HR* FentaNYL (PF) 100 MCG/2 ML VIAL IVP ONE ×3 (02:19→05:26)
--- NOTE | 2018-05-27 02:23 | Emergency Department Note ---
Disposition Clinical Impression: Left flank pain, LLQ abdominal pain, Ureteral stone with hydronephrosis Disposition: Admitted As Inpatient Condition: Good Time of Disposition: 06:33 Abdominal Pain HPI - General Chief Complaint: ED Abdominal Pain Stated Complaint: ABD Pain Time Seen by Provider: 05/27/18 01:55 Source: family Nursing Notes Reviewed: Yes Vital Signs Reviewed: Yes - History of Present Illness Pt Subjective Complaint: abdominal pain Onset (ago): hour(s) Consistency: Worsening Location: L flank Pain Scale: 8 Radiation: LLQ Improves with: nothing Worsens with: nothing Associated symptoms: Reports: nausea, other (stool changes). Denies: vomiting, diarrhea, fever, chills - Related Data Home Medications Medication Instructions Recorded Confirmed Ergocalciferol (VITAMIN D2) 50,000 unit PO MO 05/15/17 05/15/17 [Vitamin D2] Lisinopril [Zestril] 10 mg PO DAILY 05/15/17 05/15/17 Previous Rx's Medication Instructions Recorded Aspirin Enteric Coated [Aspirin EC] 81 mg PO DAILY #30 tablet. 11/08/16 HYDROcodone/Acet 5/325 mg [[place] 1 tab PO Q4-6H PRN #20 tab 05/15/17 5-325 mg] cephALEXin [Cephalexin] 500 mg PO TID #21 tablet 05/15/17 Allergies Allergy/AdvReac Type Severity Reaction Status Date / Time Hydromorphone [From Dilaudid] AdvReac Unresponsiv Verified 05/15/17 07:53 e ativan AdvReac Hallucinati Uncoded 05/15/17 07:53 ng All systems ED: reviewed and negative except as stated. Review of Systems: As Per HPI Constitutional: Denies: fever, chills, weakness ENT ED: Denies: throat pain Cardiovascular: Denies: chest pain, palpitations Respiratory: Denies: dyspnea, wheezes Gastrointestinal: Reports: as per HPI Genitourinary: Denies: dysuria, frequency, hematuria, discharge Musculoskeletal: Reports: as per HPI Integumentary: Denies: rash Neurological: Denies: weakness Endocrine: Denies: fatigue Hematological/Lymphatic: Denies: easy bleeding Allergic/Immunologic: Denies: facial swelling Abdominal Pain PMH - Past Medical History Medical history: Reports: glaucoma, hypertension, kidney stones, other Female Surgical History: Reports: appendectomy Psychiatric history: Reports: no psych history - Social History Smoking status: Never smoker Alcohol use: Reports: none Drug use: Reports: none Physical Exam - General Limitations: no limitations, age General appearance: alert, in no apparent distress - Head Head exam: atraumatic, normocephalic - Eye Eye exam: Present: EOMI. Absent: conjunctival injection - ENT ENT exam: normal oropharynx, mucous membranes moist - Neck Neck exam: Present: full ROM - Chest Chest inspection: Present: normal inspection, symmetric chest wall rise - Respiratory Respiratory exam: Absent: respiratory distress - Cardiovascular Cardiovascular exam: Present: regular rate, normal rhythm - Abdominal Exam Abdominal exam: Present: soft, tenderness. Absent: distention, guarding, rebound Abdominal tenderness: Present: LLQ - Extremities Exam Extremities exam: Present: full ROM, normal capillary refill - Back Exam Back exam: Present: tenderness (lumbar), CVA tenderness (L). Absent: CVA tenderness (R) - Neurological Exam Neurological exam: Present: alert - Psychiatric Psychiatric exam: Present: normal affect - Skin Skin exam: Present: warm, dry, intact, normal color. Absent: rash, cyanosis, diaphoresis Course Course Narrative: 83-year-old female arrives by private vehicle with complaint of left flank pain. She states it started approximately 6 hours prior to arrival. She describes it as radiating into her left lower quadrant. She mentions it as similar but more severe to her past episodes of kidney stones, she also mentions though today it feels different because it feels more midline in her back. It is accompanied with nausea. Nothing is made better. She denies any near syncopal symptoms, shortness breath, passing out, history of aneurysms, anticoagulant use, or bladder symptoms. Patient hypertensive otherwise vitals within normal limits. She appears comfortable in pain but otherwise in no acute distress. She does have left- sided flank pain, some mid lumbar tenderness. Left lower quadrant pain worse with palpation. Normal distal pulses. Workup and analgesics ordered. - Reevaluation(s) Reevaluation #1: CT scan shows obstructing distal left ureteral stone with hydronephrosis. Patient has had minimal relief from fentanyl. Vitals stable. UA no evidence of infection. Pt has had h/o lithotripsy. We will plan for admission for pain control and urology consult. Time: 04:13 Reevaluation #2: Pt discussed with and accepted by Dr. Anne. I'll plan urology page and consult order. Time: 05:22 - Consultations Consultation #1: Patient was discussed with on-call urologist Dr. Clifton, who agreed to see patient. He also advised for a lower dose 15 mg Toradol help with patient's pain. Time: 06:10 Vital Signs Temperature 98 F 05/27/18 01:50 Pulse Rate 82 05/27/18 01:50 Respiratory Rate 18 05/27/18 01:50 Blood Pressure 182/92 05/27/18 01:50 O2 Sat by Pulse Oximetry 96 05/27/18 01:50 Temperature 98 F 05/27/18 01:50 Pulse Rate 85 05/27/18 06:12 Respiratory Rate 18 05/27/18 06:12 Blood Pressure 123/74 05/27/18 06:12 O2 Sat by Pulse Oximetry 95 05/27/18 06:12 Oxygen Delivery Oxygen Delivery Room Air Abdominal Pain - MDM Narrative Medical decision making narrative: Abdomen/Pelvis CT 05/27/18 02:47 IMPRESSION: Obstructing 5-6 mm distal left ureteral stone with mild upstream hydronephrosis. Additional left intrarenal stones. Nonobstructive right nephrolithiasis. Stable right ovarian dermoid cyst. D/ / Olegario Ba / Olegario Ba Interpreting Provider: Olegario Ba - Lab Data Lab results reviewed: Yes I reviewed the patient's lab results. Result diagrams: 05/27/18 02:16 05/27/18 02:16 Lab Results 05/27/18 05/27/18 05/27/18 Range/Units 02:16 02:16 03:41 WBC 7.7 (4.3-11.1) K/mcL RBC 5.44 H (3.82-4.97) M/mcL Hgb 15.5 H (11.5-15.4) g/dL Hct 45.4 H (35.3-44.9) % MCV 83.5 (83.0-100.0) fL MCH 28.5 (28.0-33.3) pg MCHC 34.1 (31.6-35.5) g/dL RDW 12.5 (11.5-14.5) % Plt Count 154 (140-400) K/mcL MPV 11.3 (9.4-12.4) fL Immature Gran % 1.3 (0-4) % Seg Neutrophils % 72.3 % Lymphocytes % 16.2 % Monocytes % 7.9 % Eosinophils % 1.4 % Basophils % 0.9 % Neutrophils # 5.6 (1.6-8.9) K/mcL Lymphocytes # 1.3 (0.6-4.6) K/mcL Monocytes # 0.6 (0.0-1.3) K/mcL Eosinophils # 0.1 (0.0-0.6) K/mcL Basophils # 0.1 (0.0-0.2) K/mcL Sodium 139 (136-145) mEq/L Potassium 3.9 (3.5-5.1) mEq/L Chloride 102 (98-107) mEq/L Carbon Dioxide 28 (23-29) mEq/L BUN 22 (8-23) mg/dL Creatinine 0.80 (0.60-1.20) mg/dL Est GFR ( Amer) > 60 (> 60) Est GFR (Non-Af Amer) > 60 (> 60) BUN/Creatinine Ratio 28 H (6-26) Glucose 179 H (70-105) mg/dL Calculated Osmolality 296 (280-300) Lactic Acid 2.5 H (0.5-2.2) mmol/L Calcium 9.9 (8.6-10.3) mg/dL Total Bilirubin 0.5 (0.3-1.0) mg/dL Direct Bilirubin 0.0 (0.0-0.2) mg/dL Indirect Bilirubin 0.5 (0.0-1.2) mg/dL AST 20 (13-39) Units/L ALT 11 (7-52) Units/L Alkaline Phosphatase 76 (34-104) Units/L Serum Total Protein 6.8 (6.4-8.9) g/dL Albumin 4.4 (3.5-5.7) g/dL Globulin 2.4 (2.4-3.5) g/dL Albumin/Globulin Ratio 1.8 (1.1-2.2) Lipase 46 (11-82) Units/L Urine Color (Yellow) Urine Clarity (Clear) Urine pH (5.0-8.0) pH Units Ur Specific [place] (1.010-1.025) Urine Protein (Neg-Trace) mg/dL Urine Glucose (UA) (Normal) mg/dL Urine Ketones (Negative) mg/dL Urine Blood (Negative) Urine Nitrite (Negative) Urine Bilirubin (Negative) Urine Urobilinogen (Normal) mg/dL Ur Leukocyte Esterase (Negative) Urine Microscopic RBC (0-3) per hpf Urine Microscopic WBC (0-3) per hpf Ur Squamous Epith Cells (None-Few) per lpf Urine Bacteria (None-Few) per hpf Hyaline Casts (None-Few) per lpf Ur Culture Indicated? (NO) 05/27/18 Range/Units 03:53 WBC (4.3-11.1) K/mcL RBC (3.82-4.97) M/mcL Hgb (11.5-15.4) g/dL Hct (35.3-44.9) % MCV (83.0-100.0) fL MCH (28.0-33.3) pg MCHC (31.6-35.5) g/dL RDW (11.5-14.5) % Plt Count (140-400) K/mcL MPV (9.4-12.4) fL Immature Gran % (0-4) % Seg Neutrophils % % Lymphocytes % % Monocytes % % Eosinophils % % Basophils % % Neutrophils # (1.6-8.9) K/mcL Lymphocytes # (0.6-4.6) K/mcL Monocytes # (0.0-1.3) K/mcL Eosinophils # (0.0-0.6) K/mcL Basophils # (0.0-0.2) K/mcL Sodium (136-145) mEq/L Potassium (3.5-5.1) mEq/L Chloride (98-107) mEq/L Carbon Dioxide (23-29) mEq/L BUN (8-23) mg/dL Creatinine (0.60-1.20) mg/dL Est GFR ( Amer) (> 60) Est GFR (Non-Af Amer) (> 60) BUN/Creatinine Ratio (6-26) Glucose (70-105) mg/dL Calculated Osmolality (280-300) Lactic Acid (0.5-2.2) mmol/L Calcium (8.6-10.3) mg/dL Total Bilirubin (0.3-1.0) mg/dL Direct Bilirubin (0.0-0.2) mg/dL Indirect Bilirubin (0.0-1.2) mg/dL AST (13-39) Units/L ALT (7-52) Units/L Alkaline Phosphatase (34-104) Units/L Serum Total Protein (6.4-8.9) g/dL Albumin (3.5-5.7) g/dL Globulin (2.4-3.5) g/dL Albumin/Globulin Ratio (1.1-2.2) Lipase (11-82) Units/L Urine Color Yellow (Yellow) Urine Clarity Cloudy A (Clear) Urine pH 5.5 (5.0-8.0) pH Units Ur Specific [place] 1.011 (1.010-1.025) Urine Protein 30 H (Neg-Trace) mg/dL Urine Glucose (UA) Normal (Normal) mg/dL Urine Ketones Negative (Negative) mg/dL Urine Blood Large H (Negative) Urine Nitrite Negative (Negative) Urine Bilirubin Negative (Negative) Urine Urobilinogen Normal (Normal) mg/dL Ur Leukocyte Esterase Small H (Negative) Urine Microscopic RBC 3-5 H (0-3) per hpf Urine Microscopic WBC 5-15 H (0-3) per hpf Ur Squamous Epith Cells Many H (None-Few) per lpf Urine Bacteria None Seen (None-Few) per hpf Hyaline Casts None Seen (None-Few) per lpf Ur Culture Indicated? NO. A (NO) - Radiology Data Radiology results reviewed: Yes I reviewed the patient's radiology results. Attestation Statement - Attestation Attestation: I examined this patient and my medical decision-making was reviewed with the Resident Physician. I agree with the documented findings, disposition and treatment plan as described except to the extent set forth below. Findings consistent with obstructive uropathy. Patient is having significant pain and will be admitted for urology consultation pain control.
[2018-05-27 02:28] LABS: Basophils # 0.1 K/mcL (0.0-0.2); Basophils % 0.9 %; Eosinophils # 0.1 K/mcL (0.0-0.6); Eosinophils % 1.4 %; Hematocrit 45.4 % (35.3-44.9); Hemoglobin 15.5 g/dL (11.5-15.4); Immature Granulocytes % 1.3 % (0-4); Lymphocytes # 1.3 K/mcL (0.6-4.6); Lymphocytes % 16.2 %; Mean Corpuscular HGB Conc 34.1 g/dL (31.6-35.5); Mean Corpuscular Hemoglobin 28.5 pg (28.0-33.3); Mean Corpuscular Volume 83.5 fL (83.0-100.0); Mean Platelet Volume 11.3 fL (9.4-12.4); Monocytes # 0.6 K/mcL (0.0-1.3); Monocytes % 7.9 %; Neutrophils # 5.6 K/mcL (1.6-8.9); Platelet Count 154 K/mcL (140-400); Red Blood Count 5.44 M/mcL (3.82-4.97); Red Cell Distribution Width 12.5 % (11.5-14.5); Segmented Neutrophils % 72.3 %
[2018-05-27 02:49] LABS: Alanine Aminotransferase 11 Units/L (7-52); Albumin 4.4 g/dL (3.5-5.7); Albumin/Globulin Ratio 1.8 (1.1-2.2); Alkaline Phosphatase 76 Units/L (34-104); Aspartate Amino Transferase 20 Units/L (13-39); BUN/Creatinine Ratio 28 (6-26); Bilirubin,Indirect 0.5 mg/dL (0.0-1.2); Bilirubin,Total 0.5 mg/dL (0.3-1.0); Blood Urea Nitrogen 22 mg/dL (8-23); Calcium 9.9 mg/dL (8.6-10.3); Carbon Dioxide 28 mEq/L (23-29); Chloride 102 mEq/L (98-107); Globulin 2.4 g/dL (2.4-3.5); Glucose 179 mg/dL (70-105); Lipase 46 Units/L (11-82); Osmolality,Calculated 296 (280-300); Potassium 3.9 mEq/L (3.5-5.1); Sodium 139 mEq/L (136-145); Total Protein 6.8 g/dL (6.4-8.9); eGFR For Non-African Americans > 60 (> 60)
[2018-05-27 04:04] LABS: Bilirubin,Urine Negative (Negative); Blood,Urine Large (Negative); Clarity,Urine Cloudy (Clear); Color,Urine Yellow (Yellow); Glucose,Urine (UA) Normal (Normal); Ketones,Urine Negative (Negative); Leukocyte Esterase,Urine Small (Negative); Nitrite,Urine Negative (Negative); PH,Urine 5.5 pH Units (5.0-8.0); Protein,Urine 30 mg/dL (Neg-Trace); Specific Gravity,Urine 1.011 (1.010-1.025); Urobilinogen,Urine Normal (Normal)
[2018-05-27 04:06] LABS: Bacteria,Urine None Seen per hpf (None-Few); Hyaline Casts,Urine None Seen per lpf (None-Few); Squamous Epithelial Cell,Urine Many per lpf (None-Few)
[2018-05-27] MEDS ORDERED: Hyoscyamine 0.5 MG/ML MLS IVP ONE (04:07)
[2018-05-27] MEDS ORDERED: *HR* Morphine Immed Rel 30 MG TABLET PO ONE (04:10)
[2018-05-27] MEDS ORDERED: 0.9 % Sodium Chloride 1,000 ML IVC ONE (05:10)
[2018-05-27] MEDS ORDERED: Ketorolac 15 MG/ML VIAL IVP PRN ×4 (06:14→11:19)
--- NOTE | 2018-05-27 07:17 | Internal Med History&Physical ---
Date of Encounter: 05/27/18 Time of Encounter: 08:50 Internal Medicine - H&P: HPI Chief complaint: abd pain Admitted From: Home History of present illness: Ms. Enriquez is a 83 year old female who pw left flank pain. Pain began about 6 hrs prior to presentation and inher usual state of health until that time. Described as sharp pain radiating to the left back and left lower abdomen, constant in nature. No assoicated fevers, chills. + assoicated nausea, no emesis. She ahs ahd no assoicated other abd pain, diarrhea or constipation. No alleviating factors. Feels similar to prior kidney stones. in ED ct scan reveled obstructing left ureteral stone. Denies fevers, chills, weaight loss, fatigue Denies cp, palpitations, chest pressure, presyncope, syncope, le edema or orthopnea. Denies sob, wheezing, cough, dyspnea on exertion Denies dysuria, hematuria Past Med Surg Social Fam HX - Past Medical History Medical history: glaucoma, hypertension, kidney stones, other Psychiatric history: no psych history - Past Surgical History Surgical History: appendectomy Additional surgical history: skin cancer removed - Social History Smoking Status: Never smoker Smokeless Tobacco Status: No Alcohol use: none Drug use: none - Family History Mother Living Status: Hx Family Cancer: Yes (Colon) Hx Family Neurologic Disorders: Yes (Dementia) Brother Living Status: Hx Family Cancer: Yes (Breast cancer) Daughter Sister Hx Family Cancer: Yes (Breast) Sister Living Status: Hx Family Cancer: (Sarcoidosis) Son Living Status: Hx Family Cardiac Disorders: Yes (PE) Internal Medicine - H&P: Meds Aspirin Enteric Coated [Aspirin EC] 81 mg PO DAILY #30 tablet. 11/08/16 [Rx] Ergocalciferol (VITAMIN D2) [Vitamin D2] 50,000 unit PO MO 05/15/17 [History] Lisinopril [Zestril] 20 mg PO DAILY 05/27/18 [History] 3 Allergy/AdvReac Type Severity Reaction Status Date / Time Hydromorphone [From Dilaudid] AdvReac Unresponsiv Verified 05/15/17 07:53 e ativan AdvReac Hallucinati Uncoded 05/15/17 07:53 ng All Systems PM: A 10-system review of systems was performed and is negative for pertinent findings except as documented above in the HPI. - Constitutional Vitals: Temp Pulse Resp BP Pulse Ox 97.6 F 87 16 130/72 98 05/27/18 06:54 05/27/18 06:54 05/27/18 06:54 05/27/18 06:54 05/27/18 06:54 Exam: General: awake, alert, appears stated age HEENT:EOM intact, pupils equal, round, moist mucus membranes, clear oropharynx , no conjunctival pallor Cardiovascular:regular rate and rhythm, normal S1 & S2, no rubs, murmurs or gallops. No JVD. radial pulses 2+, no lower extremity edema Lungs:Normal breath sounds, no wheezes, or crackles. Normal respiratory effort on ra Abdomen:Soft, tender LLQ and flank, no guarding, non-distended, no rigidity, + bowel sounds Neurological: AAOx Skin:Normal color, no rash, no pallor, no jaundice MSK: + left CVA tenderness Internal Med - H&P Results - Labs CBC & Chem 7: 05/27/18 02:16 05/27/18 02:16 - Assessment and plan (1) Left flank pain Current Visit: Yes Status: Acute Assessment and plan: 2/2 obstructing left reteral stone with mild hydronephrosis -see tx below -prn pain control (2) Ureteral stone with hydronephrosis Current Visit: Yes Status: Acute Assessment and plan: -CT a/p with obstructing 5-6 mm distal left ureteral stone with mild hydronephrosis, addl left intra renal stones noted; no other acute findings as cause of pain -afebrile, no leukocytosis, creeat wnl -UA with large blood, msall LE, 5-15 wbc, no nitrittes--will send ucx -rocpehin -IVFs -pain control -urology consulted -renal us -scds for vte ppx and hold home ASA in case goes for procedure today -update 05/27 to OR with urology for eft ureteroscopic basket retrieval of stone , left 4.8 x 26 cm ureteral stent placement -monitor i/os , hgb and creat - labs ordered for am (3) HTN (hypertension) Current Visit: No Status: Chronic Assessment and plan: cont home lisinopril monitor bp trends Qualifiers: Hypertension type: essential hypertension Qualified Code(s): I10 - Essential (primary) hypertension - Time Spent With Patient Total time spent is greater than 50% in coordination of care (as documented) at patient's floor/unit and/or counseling patient: 25 - 35 minutes
[2018-05-27] MEDS ORDERED: *HR* HYDROcodone/Acet 5/325 mg TABLET PO PRN ×2 (07:22→11:19)
[2018-05-27] MEDS ORDERED: Naloxone 0.4 MG/ML INJ IVP PRN ×2 (07:23→11:19)
[2018-05-27] MEDS ORDERED: 0.9 % Sodium Chloride 1,000 ML IVC SCH (07:30)
--- NOTE | 2018-05-27 08:45 | Anesthesia Evaluation PreOp ---
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 11/08/16 [Rx] Ergocalciferol (VITAMIN D2) [Vitamin D2] 50,000 unit PO MO 05/15/17 [History] Lisinopril [Zestril] 20 mg PO DAILY 05/27/18 [History] 3 Allergy/AdvReac Type Severity Reaction Status Date / Time Hydromorphone [From Dilaudid] AdvReac Unresponsiv Verified 05/15/17 07:53 e ativan AdvReac Hallucinati Uncoded 05/15/17 07:53 ng - Meds/Allergy Pre-op Review Medications Reviewed: Yes Allergies Reviewed: Yes Beta Blockers on Current Med List: No Anesthesia Results - Labs 05/27/18 02:16 05/27/18 02:16 Laboratory Last Values WBC 7.7 K/mcL (4.3-11.1) 05/27/18 02:16 RBC 5.44 M/mcL (3.82-4.97) H 05/27/18 02:16 Hgb 15.5 g/dL (11.5-15.4) H 05/27/18 02:16 Hct 45.4 % (35.3-44.9) H 05/27/18 02:16 MCV 83.5 fL (83.0-100.0) 05/27/18 02:16 MCH 28.5 pg (28.0-33.3) 05/27/18 02:16 MCHC 34.1 g/dL (31.6-35.5) 05/27/18 02:16 RDW 12.5 % (11.5-14.5) 05/27/18 02:16 Plt Count 154 K/mcL (140-400) 05/27/18 02:16 MPV 11.3 fL (9.4-12.4) 05/27/18 02:16 Immature Gran % 1.3 % (0-4) 05/27/18 02:16 Seg Neutrophils % 72.3 % 05/27/18 02:16 Lymphocytes % 16.2 % 05/27/18 02:16 Monocytes % 7.9 % 05/27/18 02:16 Eosinophils % 1.4 % 05/27/18 02:16 Basophils % 0.9 % 05/27/18 02:16 Neutrophils # 5.6 K/mcL (1.6-8.9) 05/27/18 02:16 Lymphocytes # 1.3 K/mcL (0.6-4.6) 05/27/18 02:16 Monocytes # 0.6 K/mcL (0.0-1.3) 05/27/18 02:16 Eosinophils # 0.1 K/mcL (0.0-0.6) 05/27/18 02:16 Basophils # 0.1 K/mcL (0.0-0.2) 05/27/18 02:16 Sodium 139 mEq/L (136-145) 05/27/18 02:16 Potassium 3.9 mEq/L (3.5-5.1) 05/27/18 02:16 Chloride 102 mEq/L (98-107) 05/27/18 02:16 Carbon Dioxide 28 mEq/L (23-29) 05/27/18 02:16 BUN 22 mg/dL (8-23) 05/27/18 02:16 Creatinine 0.80 mg/dL (0.60-1.20) 05/27/18 02:16 Est GFR ( Amer) > 60 (> 60) 05/27/18 02:16 Est GFR (Non-Af Amer) > 60 (> 60) 05/27/18 02:16 BUN/Creatinine Ratio 28 (6-26) H 05/27/18 02:16 Glucose 179 mg/dL (70-105) H 05/27/18 02:16 Calculated Osmolality 296 (280-300) 05/27/18 02:16 Lactic Acid 2.5 mmol/L (0.5-2.2) H 05/27/18 03:41 Calcium 9.9 mg/dL (8.6-10.3) 05/27/18 02:16 Total Bilirubin 0.5 mg/dL (0.3-1.0) 05/27/18 02:16 Direct Bilirubin 0.0 mg/dL (0.0-0.2) 05/27/18 02:16 Indirect Bilirubin 0.5 mg/dL (0.0-1.2) 05/27/18 02:16 AST 20 Units/L (13-39) 05/27/18 02:16 ALT 11 Units/L (7-52) 05/27/18 02:16 Alkaline Phosphatase 76 Units/L (34-104) 05/27/18 02:16 Serum Total Protein 6.8 g/dL (6.4-8.9) 05/27/18 02:16 Albumin 4.4 g/dL (3.5-5.7) 05/27/18 02:16 Globulin 2.4 g/dL (2.4-3.5) 05/27/18 02:16 Albumin/Globulin Ratio 1.8 (1.1-2.2) 05/27/18 02:16 Lipase 46 Units/L (11-82) 05/27/18 02:16 Urine Color Yellow (Yellow) 05/27/18 03:53 Urine Clarity Cloudy (Clear) A 05/27/18 03:53 Urine pH 5.5 pH Units (5.0-8.0) 05/27/18 03:53 Ur Specific [place] 1.011 (1.010-1.025) 05/27/18 03:53 Urine Protein 30 mg/dL (Neg-Trace) H 05/27/18 03:53 Urine Glucose (UA) Normal mg/dL (Normal) 05/27/18 03:53 Urine Ketones Negative mg/dL (Negative) 05/27/18 03:53 Urine Blood Large (Negative) H 05/27/18 03:53 Urine Nitrite Negative (Negative) 05/27/18 03:53 Urine Bilirubin Negative (Negative) 05/27/18 03:53 Urine Urobilinogen Normal mg/dL (Normal) 05/27/18 03:53 Ur Leukocyte Esterase Small (Negative) H 05/27/18 03:53 Urine Microscopic RBC 3-5 per hpf (0-3) H 05/27/18 03:53 Urine Microscopic WBC 5-15 per hpf (0-3) H 05/27/18 03:53 Ur Squamous Epith Cells Many per lpf (None-Few) H 05/27/18 03:53 Urine Bacteria None Seen per hpf (None-Few) 05/27/18 03:53 Hyaline Casts None Seen per lpf (None-Few) 05/27/18 03:53 Ur Culture Indicated? NO. (NO) A 05/27/18 03:53 Anesthesia Exam Vital Signs/O2 Sat, Most Current Temp Pulse Resp BP Pulse Ox 97.6 F 87 16 130/72 98 05/27/18 06:54 05/27/18 06:54 05/27/18 06:54 05/27/18 06:54 05/27/18 07:34 HEIGHT 1.55 m WEIGHT 68 kg BMI 29 NPO (# of Hours): 8 - HEENT Mallampati: II Teeth: Edentulous Oral Opening: Greater than 3 - Cardiac Rhythm: Regular - Pulmonary Breath Sounds: bilateral Clear Respiratory Effort: Symmetrical Anesthesia Assess/Plan ASA Score: 2 Modified [place] Scale for Level of Consciousness: Cooperative, oriented, and tranquil Anesthetic Plan: General Monitoring Plan: Standard Monitors Recovery Plan: PACU Anes Supervising Prov Stmt: [employer] LIST NOT UPDATED THIS VISIT PATIENT'S CHART AND CURRENT MEDICATIONS REVIEWED
[2018-05-27] MEDS ORDERED: cefTRIAXone 1,000 MG in Water for inj. (sterile) 20 ML 10 ML IVP SCH (09:00)
--- NOTE | 2018-05-27 09:03 | Urology - Consult Note ---
<Amelia Fernandez N - Last Filed: 05/27/18 09:00> Date of Encounter: 05/27/18 Time of Encounter: 09:00 - Assessment and Plan (1) Ureteral stone with hydronephrosis Current Visit: Yes Status: Acute Assessment and plan: Patient is an 83 year old female who presents with an obstructing 5-6mm distal left ureteral stone. Patient is currently afebrile, and vital signs are stable. Discussed surgical risks and benefit. Patient and family members verbalize understanding, and consent has been signed to undergo a left ureteroscopic stone extraction with holmium laser, basket retrieval, and left ureteral stent placement with Dr. Bosch. Urology CN:HPI Consult date: 05/27/18 Reason for consult Urology: Hydronephrosis (left distal ureteral stone) History of present illness: Patient is an 83 year old female who presents to the emergency department with left flank pain and hematuria. Patient has a known history of renal stones and is established with Dr. Bosch. Patient states flank pain began 3 days ago and was accompanied with nausea and hematuria. Patient denies fever, chills, diaphoresis. Patient undergone CT abdomen and pelvis in the ED. Past Med Surg Social Fam HX - Past Medical History Medical history: glaucoma, hypertension, kidney stones, other Additional medical history: hydrocysisis Psychiatric history: no psych history - Past Surgical History Surgical History: appendectomy Additional surgical history: skin cancer removed - Social History Smoking Status: Never smoker Smokeless Tobacco Status: No Alcohol use: none Drug use: none - Family History Mother Living Status: Hx Family Cancer: Yes (Colon) Hx Family Neurologic Disorders: Yes (Dementia) Brother Living Status: Hx Family Cancer: Yes (Breast cancer) Daughter Sister Hx Family Cancer: Yes (Breast) Sister Living Status: Hx Family Cancer: (Sarcoidosis) Son Living Status: Hx Family Cardiac Disorders: Yes (PE) Medications and Allergies Aspirin Enteric Coated [Aspirin EC] 81 mg PO DAILY #30 tablet. 11/08/16 [Rx] Ergocalciferol (VITAMIN D2) [Vitamin D2] 50,000 unit PO MO 05/15/17 [History] Lisinopril [Zestril] 20 mg PO DAILY 05/27/18 [History] 3 Allergy/AdvReac Type Severity Reaction Status Date / Time Hydromorphone [From Dilaudid] AdvReac Unresponsiv Verified 05/15/17 07:53 e ativan AdvReac Hallucinati Uncoded 05/15/17 07:53 ng Review of Systems - Constitutional no chills, no fever(s) - EENT Nose, mouth and throat: no dizziness, no headache(s) - Cardiovascular no chest pain, no dyspnea - Respiratory no cough, no dyspnea - Gastrointestinal nausea, no abdominal pain, no vomiting - Genitourinary Genitourinary: flank pain (left ), hematuria, urinary frequency, urinary hesitancy, urinary urgency, no difficulty urinating, no dysuria Menstruation: post menopausal - Musculoskeletal back pain, no muscle weakness - Integumentary no erythema, no rash, no swelling - Neurological no confusion, no syncope Exam Initial Vital Signs Temp Pulse Resp BP Pulse Ox 98 F 82 18 182/92 96 05/27/18 01:50 05/27/18 01:50 05/27/18 01:50 05/27/18 01:50 05/27/18 01:50 - General physical appearance Present: well developed, no distress, no pain - Eyes Present: PERRL, normal ocular movement - ENT Present: no hearing loss, no congestion - Neck Present: no masses, trachea midline - Respiratory Present: normal respiratory effort - Cardiovascular Cardiovascular exam IM: RRR - Abdomen Abdomen: Present: soft, tender (left CVAT) - Integumentary Present: no rash, no abnormal pigmentation - Neurologic Present: normal coordination. Absent: confused Urology Results - Labs 05/27/18 02:16 05/27/18 02:16 Abnormal lab results RBC 5.44 M/mcL (3.82-4.97) H 05/27/18 02:16 Hgb 15.5 g/dL (11.5-15.4) H 05/27/18 02:16 Hct 45.4 % (35.3-44.9) H 05/27/18 02:16 BUN/Creatinine Ratio 28 (6-26) H 05/27/18 02:16 Glucose 179 mg/dL (70-105) H 05/27/18 02:16 Lactic Acid 2.5 mmol/L (0.5-2.2) H 05/27/18 03:41 Urine Clarity Cloudy (Clear) A 05/27/18 03:53 Urine Protein 30 mg/dL (Neg-Trace) H 05/27/18 03:53 Urine Blood Large (Negative) H 05/27/18 03:53 Ur Leukocyte Esterase Small (Negative) H 05/27/18 03:53 Urine Microscopic RBC 3-5 per hpf (0-3) H 05/27/18 03:53 Urine Microscopic WBC 5-15 per hpf (0-3) H 05/27/18 03:53 Ur Squamous Epith Cells Many per lpf (None-Few) H 05/27/18 03:53 Ur Culture Indicated? NO. (NO) A 05/27/18 03:53 All other labs normal. - Imaging CT scan - abdomen: report reviewed, image reviewed CT scan - pelvis: report reviewed, image reviewed Consult Discharge Plan - Plan Referrals: Carey Baugh DO [Primary Care Provider] - <Ganesh Bosch - Last Filed: 05/27/18 09:35> Date of Encounter: 05/27/18 - Assessment and Plan (1) Left flank pain Current Visit: Yes Status: Acute Assessment and plan: Patient was seen and examined with Amelia Fernandez. I agree with plan. to OR today for stone extraction. Exam Initial Vital Signs Temp Pulse Resp BP Pulse Ox 98 F 82 18 182/92 96 05/27/18 01:50 05/27/18 01:50 05/27/18 01:50 05/27/18 01:50 05/27/18 01:50 Urology Results - Labs 05/27/18 02:16 05/27/18 02:16 Abnormal lab results RBC 5.44 M/mcL (3.82-4.97) H 05/27/18 02:16 Hgb 15.5 g/dL (11.5-15.4) H 05/27/18 02:16 Hct 45.4 % (35.3-44.9) H 05/27/18 02:16 BUN/Creatinine Ratio 28 (6-26) H 05/27/18 02:16 Glucose 179 mg/dL (70-105) H 05/27/18 02:16 Lactic Acid 2.5 mmol/L (0.5-2.2) H 05/27/18 03:41 Urine Clarity Cloudy (Clear) A 05/27/18 03:53 Urine Protein 30 mg/dL (Neg-Trace) H 05/27/18 03:53 Urine Blood Large (Negative) H 05/27/18 03:53 Ur Leukocyte Esterase Small (Negative) H 05/27/18 03:53 Urine Microscopic RBC 3-5 per hpf (0-3) H 05/27/18 03:53 Urine Microscopic WBC 5-15 per hpf (0-3) H 05/27/18 03:53 Ur Squamous Epith Cells Many per lpf (None-Few) H 05/27/18 03:53 Ur Culture Indicated? NO. (NO) A 05/27/18 03:53 All other labs normal.
[2018-05-27] MEDS ORDERED: *HR* Midazolam HCl 2 MG/2 ML VIAL ONE (09:52)
[2018-05-27] MEDS ORDERED: Dexamethasone 4 MG/ML VIAL ONE (09:52)
[2018-05-27] MEDS ORDERED: Lidocaine -MPF 2% 2 ML VIAL ONE (09:52)
[2018-05-27] MEDS ORDERED: *HR* Propofol 200 MG/20 ML VIAL IVP ONE (09:52)
[2018-05-27] MEDS ORDERED: Ondansetron 4 MG/2 ML VIAL ONE (09:52)
[2018-05-27] MEDS ORDERED: *HR* FentaNYL (PF) 100 MCG/2 ML VIAL ONE (09:52)
[2018-05-27] MEDS ORDERED: *HR* Labetalol 100 MG/20 ML MDV IVP PRN (10:01)
[2018-05-27] MEDS ORDERED: *HR* FentaNYL (PF) 100 MCG/2 ML VIAL IVP PRN (10:01)
[2018-05-27] MEDS ORDERED: *HR* OxyCODONE Immed Rel 5 MG TABLET PO PRN (10:01)
[2018-05-27] MEDS ORDERED: Ringers Solution, Lactated 1,000 ML IVC SCH (10:15)
[2018-05-27] MEDS ORDERED: *HR* PHENYLEPHRINE 1,000 MCG/10 ML SYRINGE IVP ONE (10:28)
--- NOTE | 2018-05-27 10:31 | Operative Note ---
Date of procedure: 05/27/18 Pre-op diagnosis: left distal ureteral stone Post-op diagnosis: same Procedure: Left ureteroscopic basket retrieval of stone, left 4.8 x 26 cm ureteral stent placement Anesthesia: GETA Surgeon: Ganesh Bosch Was there an tv production assistant present: No Estimated blood loss (cc): 0 Specimen: left ureteral stone Condition: stable Disposition: PACU Procedure in Detail: Patient was prepped and draped in normal sterile fashion. Timeout procedure performed. I then inserted the semirigid ureteroscope into the patient's bladder. I was able to cannulate the left ureteral orifice. I then used a basket device to grab the distal 3 x 6 mm stone. I was able to remove the stone in its entirety. I then placed the scope back into the left ureter and placed a Glidewire into the left kidney. I then placed a 4.8 x 26 cm stent with good curl seen in the left kidney and in the bladder. A string was left for easy removal in 2-3 days.
--- NOTE | 2018-05-27 10:59 | Anesthesia Evaluation Post Op ---
Date of Encounter: 05/27/18 Time of Encounter: 10:57 - Vital Signs Vital Signs: vss - Lungs Lungs: Clear Ascult./Percussion - Airway Airway: Non-obstructed - Cardiovascular Baseline Rhythm - Mental Status Mental Status: Alert & Oriented, Answers Appropriately - Pain Pain Scale used: Gilbert-Jaelyn (Faces) (tolerable) - Nausea Vomiting Nausea Vomiting: Not Present - Discharge PostOp Status: Transfer Patient to floor
[2018-05-27] MEDS: 0.9 % Sodium Chloride 1,000 ML IVC SCH (23:45)
[2018-05-28] MEDS ORDERED: Bisacodyl 10 MG RECTAL SUPPOSITORY RC ONE (01:23)
[2018-05-28] MEDS: 0.9 % Sodium Chloride 1,000 ML IVC SCH (02:21)
[2018-05-28] MEDS: *HR* HYDROcodone/Acet 10/325 mg TABLET PO PRN (02:22)
[2018-05-28] MEDS ORDERED: Ondansetron 4 MG/2 ML VIAL IVP PRN (03:19)
[2018-05-28 04:00] LABS: Bilirubin,Urine Small (Negative); Blood,Urine Large (Negative); Clarity,Urine Cloudy (Clear); Color,Urine Red (Yellow); Glucose,Urine (UA) Normal (Normal); Ketones,Urine 15 mg/dL (Negative); Leukocyte Esterase,Urine Moderate (Negative); Nitrite,Urine Positive (Negative); Protein,Urine 100 mg/dL (Neg-Trace); Specific Gravity,Urine 1.021 (1.010-1.025)
[2018-05-28 04:02] LABS: Bacteria,Urine None Seen per hpf (None-Few); Squamous Epithelial Cell,Urine Many per lpf (None-Few); WBC,Urine 50-100 per hpf (0-3)
[2018-05-28] MEDS ORDERED: Ketorolac 15 MG/ML VIAL IM ONE (04:11)
[2018-05-28] MEDS ORDERED: *HR* Promethazine 25 MG/ML VIAL IVP ONE (04:11)
[2018-05-28 04:12] LABS: RBC,Urine 15-30 per hpf (0-3)
[2018-05-28] MEDS ORDERED: Ketorolac 15 MG/ML VIAL IVP ONE (04:34)
--- NOTE | 2018-05-28 04:52 | Event Note ---
Date of Encounter: 05/28/18 Time of Encounter: 04:41 I was called to beside by RN. 83 y/o female with dementia POD 1 left ureteral stone retervial complaining of abdominal cramping, left sided back pain, constipation and nausea. Per daughter she is more confused and agitated than her normal, She can no accurately recall events and flight of ideas do not make since. Exam: Heart : RRR, Llngs CTAB Abdomen , distended, decreased BS, and diffusely tender worse in left lower quad, L CVA tenderness moderate Vitals afebrile Plan: Attempted pain management with [place] 10 with out improvement - then ketorolac IM per pt request RN gave suppository and colace Zofran for nausea Symptoms did not resolve phenergran for nausea abdominal X-ray to r/o SBO
[2018-05-28 05:13] LABS: Basophils % 0.2 %; Eosinophils % 0.3 %; Hematocrit 41.7 % (35.3-44.9); Immature Granulocytes % 0.5 % (0-4); Lymphocytes # 1.3 K/mcL (0.6-4.6); Lymphocytes % 10.1 %; Mean Corpuscular HGB Conc 33.3 g/dL (31.6-35.5); Mean Corpuscular Hemoglobin 27.5 pg (28.0-33.3); Mean Corpuscular Volume 82.6 fL (83.0-100.0); Mean Platelet Volume 11.8 fL (9.4-12.4); Monocytes # 1.4 K/mcL (0.0-1.3); Monocytes % 10.5 %; Neutrophils # 10.1 K/mcL (1.6-8.9); Platelet Count 155 K/mcL (140-400); Red Blood Count 5.05 M/mcL (3.82-4.97); Red Cell Distribution Width 12.8 % (11.5-14.5); Segmented Neutrophils % 78.4 %
[2018-05-28 05:14] LABS: Hemoglobin 13.9 g/dL (11.5-15.4)
[2018-05-28 05:20] LABS: Prothrombin Time 10.8 Seconds (9.4-12.1)
[2018-05-28 05:35] LABS: BUN/Creatinine Ratio 29 (6-26); Blood Urea Nitrogen 23 mg/dL (8-23); Calcium 9.3 mg/dL (8.6-10.3); Carbon Dioxide 24 mEq/L (23-29); Chloride 106 mEq/L (98-107); Glucose 143 mg/dL (70-105); Osmolality,Calculated 294 (280-300); Sodium 139 mEq/L (136-145); eGFR For Non-African Americans > 60 (> 60)
[2018-05-28] MEDS ORDERED: Haloperidol Lactate 5 MG/ML VIAL IVP ONE ×2 (09:38→11:11)
--- NOTE | 2018-05-28 10:46 | Urology Progress Note ---
Date of Encounter: 05/28/18 Time of Encounter: 10:00 - Assessment and Plan (1) Ureteral stone with hydronephrosis Current Visit: Yes Status: Acute Assessment and plan: Patient is an 83 year old female who is 1 day status post ureteroscopic stone extraction. Patient has become increasingly agitated overnight and has refused to cooperate with XRAY or physician/nursing assessments. Patient self removed stent against orders last night. Plan to follow up with patient within 4-6 weeks to discuss stone analysis and prevention. Progress Note Subjective: afebrile Narrative: Patient seen and examined sitting upright in bedside commode with daughter and granddaughter present. Patient has gotten increasingly combative overnight. Patient was given Haldol 2mg by nursing staff about 30 minutes prior without relief of agitation. Patient's family members state her current behavior is out of character for her. Patient declines to participate in history or physical. Objective Initial Vital Signs Temp Pulse Resp BP Pulse Ox 98 F 82 18 182/92 96 05/27/18 01:50 05/27/18 01:50 05/27/18 01:50 05/27/18 01:50 05/27/18 01:50 - General physical appearance Present: no distress, no pain - Respiratory Present: normal expansion, normal respiratory effort - Integumentary Present: no rash, no abnormal pigmentation - Musculoskeletal Present: normal posture - Psychiatric Present: oriented to person, speech is normal, other (patient is very agitated and aggressive ). Absent: oriented to time, oriented to place, memory intact - Labs 05/28/18 04:27 05/28/18 04:27 Diabetes panel 05/28/18 Range/Units 04:27 Sodium 139 (136-145) mEq/L Potassium 4.0 (3.5-5.1) mEq/L Chloride 106 (98-107) mEq/L Carbon Dioxide 24 (23-29) mEq/L BUN 23 (8-23) mg/dL Creatinine 0.78 (0.60-1.20) mg/dL Glucose 143 H (70-105) mg/dL Calcium 9.3 (8.6-10.3) mg/dL Calcium panel 05/28/18 Range/Units 04:27 Calcium 9.3 (8.6-10.3) mg/dL Pituitary panel 05/28/18 Range/Units 04:27 Sodium 139 (136-145) mEq/L Potassium 4.0 (3.5-5.1) mEq/L Chloride 106 (98-107) mEq/L Carbon Dioxide 24 (23-29) mEq/L BUN 23 (8-23) mg/dL Creatinine 0.78 (0.60-1.20) mg/dL Glucose 143 H (70-105) mg/dL Calcium 9.3 (8.6-10.3) mg/dL Adrenal panel 05/28/18 Range/Units 04:27 Sodium 139 (136-145) mEq/L Potassium 4.0 (3.5-5.1) mEq/L Chloride 106 (98-107) mEq/L Carbon Dioxide 24 (23-29) mEq/L BUN 23 (8-23) mg/dL Creatinine 0.78 (0.60-1.20) mg/dL Glucose 143 H (70-105) mg/dL Calcium 9.3 (8.6-10.3) mg/dL - VTE Reasons for not Prescribing Prophylaxis: Medical contraindication Documentation of Mechanical Device: Intermittent pneumatic compression device Consult Discharge Plan - Plan Referrals: Carey Baugh DO [Primary Care Provider] -
[2018-05-28] MEDS: cefTRIAXone 1,000 MG in Water for inj. (sterile) 20 ML 10 ML IVP SCH (13:14)
[2018-05-28 15:14] LABS: Bilirubin,Urine Moderate (Negative); Blood,Urine Large (Negative); Clarity,Urine Turbid (Clear); Color,Urine Red (Yellow); Glucose,Urine (UA) Normal (Normal); Ketones,Urine 15 mg/dL (Negative); Leukocyte Esterase,Urine Moderate (Negative); Nitrite,Urine Positive (Negative); Protein,Urine 100 mg/dL (Neg-Trace); Specific Gravity,Urine 1.026 (1.010-1.025)
[2018-05-28 15:27] LABS: Bacteria,Urine None Seen per hpf (None-Few); Hyaline Casts,Urine None Seen per lpf (None-Few); Squamous Epithelial Cell,Urine Many per lpf (None-Few)
[2018-05-28 15:31] LABS: RBC,Urine 0-3 per hpf (0-3)
--- NOTE | 2018-05-28 19:50 | Internal Med Progress Note ---
Hospitalist Progress Note - Encounter Date of Encounter: 05/28/18 Time of Encounter: 09:00 - Subjective Interval History: Patient was seen and examined at bedside. Patient's x-ray sitting up on the commode she is confused and combative. Family who is at bedside reports this is out of character for the patient. They also reported the patient has not slept in the past 48 hours. - Exam Vitals: Temp Pulse Resp BP Pulse Ox 98.1 F 97 16 136/73 93 05/28/18 19:22 05/28/18 19:22 05/28/18 19:22 05/28/18 19:22 05/28/18 19:22 Exam: General: awake, alert, agitated oriented to name only HEENT:EOM intact, pupils equal, round, moist mucus membranes, clear oropharynx , no conjunctival pallor Cardiovascular:regular rate and rhythm, normal S1 & S2, no rubs, murmurs or gallops. No JVD. radial pulses 2+, no lower extremity edema Lungs:Normal breath sounds, no wheezes, or crackles. Normal respiratory effort on ra Abdomen:Soft, no guarding, non-distended, no rigidity, + bowel sounds Neurological: AAOx Skin:Normal color, no rash, no pallor, no jaundice MSK: + left CVA tenderness - Assessment and Plan (1) HTN (hypertension) Current Visit: No Status: Chronic Assessment and Plan: hold lisinopril and blood pressure is on the low side monitor bp trends Continue IV fluids (2) Left flank pain Current Visit: Yes Status: Acute Assessment and Plan: 2/2 obstructing left reteral stone with mild hydronephrosis-urology consultation renal stent placed and patient did remove-she will follow-up with 4 -6 weeks with urology -see tx below -prn pain control (3) Ureteral stone with hydronephrosis Current Visit: Yes Status: Acute Assessment and Plan: -CT a/p with obstructing 5-6 mm distal left ureteral stone with mild hydronephrosis, addl left intra renal stones noted; no other acute findings as cause of pain -afebrile, no leukocytosis, creeat wnl -UA with large blood, msall LE, 5-15 wbc, no nitrittes--will send ucx -rocpehin -IVFs -pain control -urology consulted- left ureteroscopic basket retrieval of stone, left 4.8 x 26 cm ureteral stent placement-patient removed stent after becoming agitated overnight she will follow up with urology in 4-6 weeks -monitor i/os , hgb and creat - labs ordered for am (4) Encephalopathy acute Current Visit: Yes Status: Acute Assessment and Plan: 1 patient did have some confusion overnight-she was agitated and combative she did pull out her ureteral stent. She was combative -we were unable to assess for provide care to the patient. Patient was given Haldol 4 mg IVP. Family does report the patient has not slept in approximate 48 hours. Unsure if this is related to delirium from sleep deprivation or infectious process. We will obtain blood cultures as well as urine culture. Check KUB. - Time Spent with Patient Total time spent is greater than 50% in coordination of care (as documented) at patient's floor/unit and/or counseling patient: Internal Medicine: Result - Labs CBC & Chem 7: 05/28/18 04:27 05/28/18 04:27 Labs: Short CBC 05/28/18 Range/Units 04:27 WBC 12.9 H D (4.3-11.1) K/mcL Hgb 13.9 D (11.5-15.4) g/dL Hct 41.7 (35.3-44.9) % Plt Count 155 (140-400) K/mcL Neutrophils # 10.1 H (1.6-8.9) K/mcL BMP 05/28/18 04:27 Sodium 139 Potassium 4.0 Chloride 106 Carbon Dioxide 24 BUN 23 Creatinine 0.78 Glucose 143 H Calcium 9.3 Urine 05/28/18 05/28/18 Range/Units 03:45 14:54 Urine Color Red A Red A (Yellow) Urine Clarity Cloudy A Turbid A (Clear) Urine pH 5.0 5.0 (5.0-8.0) pH Units Ur Specific [place] 1.021 1.026 H (1.010-1.025) Urine Protein 100 H 100 H (Neg-Trace) mg/dL Urine Glucose (UA) Normal Normal (Normal) mg/dL - ABG Interpretation ABG results: PT/INR, D-dimer PT 10.8 Seconds (9.4-12.1) 05/28/18 04:27 - Impressions Impressions KUB X-Ray 05/28/18 09:44 IMPRESSION: Mild gaseous dilation of the colon which may reflect ileus. D/ / 05/28/2018 13:44:16 Esperanza Jenkins MD [facility] Interpreting Provider: Esperanza Jenkins MD - VTE Reasons for not Prescribing Prophylaxis: Medical contraindication Documentation of Mechanical Device: Intermittent pneumatic compression device Consult Discharge Plan - Plan Referrals: Carey Baugh, [Primary Care Provider] - (1) HTN (hypertension) Qualifiers: Hypertension type: essential hypertension Qualified Code(s): I10 - Essential (primary) hypertension
[2018-05-28] MEDS ORDERED: 0.9 % Sodium Chloride 1,000 ML IVC SCH (20:00)
[2018-05-29] MEDS: *HR* HYDROcodone/Acet 10/325 mg TABLET PO PRN (05:34)
[2018-05-29] MEDS: cefTRIAXone 1,000 MG in Water for inj. (sterile) 20 ML 10 ML IVP SCH (10:22)
[2018-05-29] MEDS ORDERED: *HR* HYDROcodone/Acet 10/325 mg TABLET PO PRN (11:02)
[2018-05-29 16:15] VITALS: BP 136/83
[2018-05-29 16:19] LABS: Basophils # 0.1 K/mcL (0.0-0.2); Basophils % 0.8 %; Eosinophils # 0.2 K/mcL (0.0-0.6); Hematocrit 39.5 % (35.3-44.9); Hemoglobin 13.1 g/dL (11.5-15.4); Immature Granulocytes % 0.5 % (0-4); Lymphocytes # 1.4 K/mcL (0.6-4.6); Lymphocytes % 14.4 %; Mean Corpuscular HGB Conc 33.2 g/dL (31.6-35.5); Mean Corpuscular Volume 84.4 fL (83.0-100.0); Mean Platelet Volume 11.1 fL (9.4-12.4); Neutrophils # 7.1 K/mcL (1.6-8.9); Platelet Count 131 K/mcL (140-400); Red Blood Count 4.68 M/mcL (3.82-4.97); Red Cell Distribution Width 13.2 % (11.5-14.5); Segmented Neutrophils % 72.3 %
[2018-05-29 16:31] LABS: BUN/Creatinine Ratio 19 (6-26); Blood Urea Nitrogen 20 mg/dL (8-23); Calcium 8.7 mg/dL (8.6-10.3); Carbon Dioxide 26 mEq/L (23-29); Chloride 108 mEq/L (98-107); Glucose 143 mg/dL (70-105); Osmolality,Calculated 295 (280-300); Potassium 3.7 mEq/L (3.5-5.1); Sodium 140 mEq/L (136-145); eGFR For Non-African Americans 50 (> 60)
--- NOTE | 2018-05-29 16:36 | Discharge Summary ---
- NOTES TO OUTPATIENT PROVIDER Notes to Outpatient Provider: Patient had ureteroscopic stone extraction she will follow-up in 4-6 weeks with urology to discuss down analysis and prevention. Orders not resulted at time of discharge: Pending orders 05/27/18 10:45 Calculi (stone) Analysis Routine 05/28/18 12:09 Culture,Blood [BC] Stat 05/29/18 16:00 Chem 7 [Basic Metabolic Panel] Stat Date of Encounter: 05/29/18 Time of Encounter: 16:30 - Discharge Diagnosis (1) HTN (hypertension) Priority: Secondary Status: Chronic Qualifiers: Hypertension type: essential hypertension Qualified Code(s): I10 - Essential (primary) hypertension (2) Left flank pain Priority: Secondary Status: Acute (3) Ureteral stone with hydronephrosis Priority: Secondary Status: Acute (4) Encephalopathy acute Priority: Secondary Status: Resolved Hospital course: Ms. Enriquez is a 83 year old female past medical history of glaucoma hypertension kidney stones patient presented to the emergency department with left flank pain and hematuria she does have a known history of renal stones and she is followed by Dr. Briones as an outpatient. She also had associated symptoms of nausea and hematuria. She denied any fevers chills diaphoresis. CT of abdomen and pelvis in the emergency department did show a obstructing 5-6 mm distal left ureteral stone with mild upstream hydronephrosis. Urology was consulted and patient underwent a left ureter scoping basket retrieval with ureteral stent placement. During recovery. Patient did experience an episode of confusion. Patient was afebrile with no infectious process found. Family reports the patient has not slept in a couple days and recently becomes confused in the hospital. Patient was given Haldol and within 24 hours she has back to her baseline there was some question about whether or not patient did pull out renal stent during confusion. KUB was obtained which did show partial stent placement. Patient will remove stent to 3 days postop with today being secondary. Advised patient to follow up with urology as outpatient as well as follow up with PCP patient family verbalized understanding she hemodynamically stable and she is ready for discharge. Discharge discussed with: patient - Time Spent with Patient Total time spent providing and/or coordinating discharge services: - Discharge Medications Prescriptions: HYDROcodone/Acet 10/325 mg [[place] 10-325 mg] 1 each PO Q4HR PRN 1 Days #4 tablet PRN Reason: Pain Home Medications: Aspirin Enteric Coated [Aspirin EC] 81 mg PO DAILY #30 tablet. 11/08/16 [Rx] Ergocalciferol (VITAMIN D2) [Vitamin D2] 50,000 unit PO MO 05/15/17 [History] Lisinopril [Zestril] 20 mg PO DAILY 05/27/18 [History] HYDROcodone/Acet 10/325 mg [[place] 10-325 mg] 1 each PO Q4HR PRN 1 Days #4 tablet 05/29/18 [Rx] Allergies/Adverse Reactions: 3 Allergy/AdvReac Type Severity Reaction Status Date / Time Hydromorphone [From Dilaudid] AdvReac Unresponsiv Verified 05/15/17 07:53 e ativan AdvReac Hallucinati Uncoded 05/15/17 07:53 ng Date of admission: 05/27/18 12:16 Primary care physician: Markus Rider Discharging clinician: Caitlin Agosto Anticipated date of discharge: 05/29/18 - Constitutional Vitals: Temp Pulse Resp BP Pulse Ox 98.3 F 90 16 136/83 96 05/29/18 16:14 05/29/18 16:14 05/29/18 16:14 05/29/18 16:14 05/29/18 16:14 General appearance: Present: A&O X 3 Exam: General: awake, alert, agitated oriented to name only HEENT:EOM intact, pupils equal, round, moist mucus membranes, clear oropharynx , no conjunctival pallor Cardiovascular:regular rate and rhythm, normal S1 & S2, no rubs, murmurs or gallops. No JVD. radial pulses 2+, no lower extremity edema Lungs:Normal breath sounds, no wheezes, or crackles. Normal respiratory effort on ra Abdomen:Soft, no guarding, non-distended, no rigidity, + bowel sounds Neurological: AAOx Skin:Normal color, no rash, no pallor, no jaundice MSK: + left CVA tenderness - Head Head exam: Present: atraumatic, normocephalic - Eye Eye exam: Present: PERRL, conjuntiva pink, sclera anicteric Pupils: Present: PERRL - Neck Neck exam general surgery: Present: supple, trachea midline. Absent: lymphadenopathy - Respiratory Respiratory exam: Present: CTAB. Absent: accessory muscle use, rales, rhonchi, wheezes - Cardiovascular Cardiovascular exam: Present: RRR, +S1, +S2. Absent: diastolic murmur, gallop, rubs, systolic murmur - GI/Abdominal GI/Abdominal exam: Present: normal bowel sounds, soft, no peritoneal signs. Absent: distended, tenderness - Extremities Exam Extremities exam: Present: warm, radial pulses palpable and symmetrical. Absent : calf tenderness, cyanotic, pedal edema - Neurological Exam Neurological exam: Present: CN II-XII intact, oriented X3, no focal deficits. Absent: pronater drift, facial droop, speech deficit - Skin Skin exam: Present: dry, intact - Patient Status Disposition: Home, Self-Care Condition: Good Functional capacity at discharge: independent ambulation Overall status at discharge: patient is back to baseline - Ambulatory Orders Ambulatory Orders: Basic Metabolic Panel [CHEM] Time Frame: 05/31/18, Facility: [facility] [place], Location: Lab - Discharge Instructions Follow Up With: Carey Baugh DO [Primary Care Provider] - - Diet and Activity Activity: increase activity as tolerated Diet: advance to your usual diet - VTE Reasons for not Prescribing Prophylaxis: Medical contraindication Documentation of Mechanical Device: Intermittent pneumatic compression device
[2018-05-30 16:45] LABS: Calculi Mass 30 mg
== END 2018-05-29 17:39 | disposition home or self-care (01) | DRG 668 ==
LOC: EMEROOARM 01:47 → 3BNU 01:47 → SUATTDRO 05:53
PROVIDERS: ADMIT Family Medicine; ATTEND Internal Medicine